=== PATIENT | female | born 1990 | race Caucasian/White ===

== ENCOUNTER → 2016-09-16 | Outpatient (CLI) | payer BC ==
[~2016-09-16] MED LIST: SINCALIDE INJ 1.1 MCG in SODIUM CHLORIDE 0.9% 100ML 100 ML IV ONE
--- NOTE | 2016-09-16 13:56 | DIAGNOSTIC IMAGING REPORT ---
NUCLEAR MEDICINE HEPATIC BILIARY SCAN WITH EJECTION FRACTION ANALYSIS CLINICAL HISTORY: Right upper quadrant abdominal pain COMPARISON STUDY: No previous studies for comparison. FINDINGS: The patient was injected with 5.4 mCi technetium 99m Choletec. Sequential anterior imaging was performed. The gallbladder was first visualized on the 25 minute image. There was normal passage of activity into small bowel. At 1 hour, the patient was administered 1.1 mcg of sincalide utilizing a 30 minute intravenous infusion. The gallbladder ejection fraction was normal measuring 76%. IMPRESSION: Normal study. No evidence of cystic duct obstruction. Normal gallbladder ejection fraction of 76%. Electronically signed by: Vinnie Dobbs M.D. 09/16/2016 1:55 PM Dictated Date/Time: 09/16/2016 1:53 PM
== END | disposition home or self-care (01) ==
LOC: C.NUCL 10:03
PROVIDERS: ATTEND Internal Medicine
DX: R10.11 Right upper quadrant pain (principal)

== ENCOUNTER → 2017-01-14 | Outpatient (CLI) | payer BC ==
--- NOTE | 2017-01-14 10:36 | DIAGNOSTIC IMAGING REPORT ---
LEFT THUMB 3 VIEWS HISTORY: Left thumb injury with pain. 1ST DIGIT ON LEFT HAND COMPARISON: None. FINDINGS: There is no acute fracture or dislocation. Soft tissues are unremarkable. No radiopaque foreign bodies. IMPRESSION: No acute fracture or dislocation within the left thumb. Electronically signed by: Louie Hamilton M.D. 01/14/2017 10:35 AM Dictated Date/Time: 01/14/2017 10:34 AM
== END | disposition home or self-care (01) ==
LOC: C.RAD1850 10:16
PROVIDERS: ATTEND Student in an Organized Health Care Education/Training Program
DX: M79.645 Pain in left finger(s) (principal)

== ENCOUNTER 2017-05-31 14:50 | Observation (INO) | payer BC ==
[~2017-05-31] VITALS: Ht 162.6 cm; Wt 55.1 kg
--- NOTE | 2017-05-31 15:27 | EMERGENCY ROOM VISIT NOTE ---
History First contact with patient: 14:58 Chief Complaint: CHEST PAIN Stated Complaint: CHEST PAIN History of Present Illness The patient is a 26 year old female who presents to the Emergency Room with complaints of "chest pain". The patient states that she developed chest pain throughout the day yesterday, into last night. She states that when she woke up she was diaphoretic, her heart was racing in the left anterior chest pain worsened. She then states that she went to the gym which did not exacerbate the chest pain, however since then she notes pain worsening in the left anterior chest. It one point was worse with movement of the left arm. She had shortness of breath at times. She had this before and it was a pulled muscle. She denies any smoking, significant past medical history. She does note that her father has heart disease, and she does take control. There has been no recent long travel or fractures or surgeries. Review of Systems A complete 10-point Review of Systems was discussed with the patient, with pertinent positives and negatives listed in the History of Present Illness. All remaining Review of Systems questions can be considered negative unless otherwise specified. Past Medical/Surgical History No pertinent Family History Father with heart disease Social History Smoking Status: Never Smoker Pt. lives locally Current/Historical Medications Scheduled Biotin (Biotin), 1,000 MCG PO DAILY Control Pills ( Control Pills), 1 TAB PO DAILY Cholecalciferol (Vitamin D3), 1,000 UNITS PO DAILY Mesalamine (Lialda), 4 TAB PO QAM W/FOOD Riboflavin (Vitamin B-2), 100 MG PO DAILY Physical Exam Vital Signs Date Time Temp Pulse Resp B/P (MAP) Pulse Ox O2 Delivery O2 Flow Rate FiO2 05/31/17 17:46 91 18 98 05/31/17 17:30 130/88 05/31/17 17:16 87 16 97 05/31/17 17:00 123/88 05/31/17 16:46 94 15 86 05/31/17 16:30 134/86 05/31/17 16:16 91 16 126/85 99 Room Air 05/31/17 16:16 94 15 05/31/17 15:20 99 Room Air 05/31/17 15:17 100 05/31/17 15:15 99 Room Air 05/31/17 14:53 37.0 106 20 150/98 98 Room Air Physical Exam VITAL SIGNS - Vital signs and nursing notes were reviewed. Stable. Afebrile. Tachycardic at 106. GENERAL - 26-year-old female appearing her stated age who is in no acute distress. She appears anxious Communicates well with provider and answers questions appropriately. SKIN - Without rashes. HEAD - NC/AT. EYES - Sclera anicteric. EARS - No deformities of external structures noted on gross examination bilaterally. No pain elicited with palpation of the tragus bilaterally. External auditory canals without discharge or otorrhea. Tympanic membranes pearly drake without retraction or bulging. No fluid or purulent material visualized behind the TM. Handle of malleus, umbo, cone of light, pars tensa/ flaccid all easily visualized. NOSE - Midline and without cyanosis. No epistaxis or purulent drainage noted. Septum midline without deviation or septal hematoma noted. MOUTH/OROPHARYNX - Without perioral cyanosis. LUNGS - Chest wall symmetric without accessory muscle use, intercostals retractions, or central cyanosis. Normal vesicular breath sounds CTA B/L. No wheezes, rales, or rhonchi appreciated. CARDIAC - RRR with S1/S2. No murmur, rubs, or gallops appreciated. EXTREMITIES - No clubbing or peripheral cyanosis. No pretibial edema present. +5 /5 strength noted in UE/LE bilaterally. NEUROLOGIC - Cranial nerves II through XII grossly intact. Sensory intact to light touch throughout. PSYCH - A&O, and cooperates fully with examiner. Pt is very pleasant and interacts well with examiner. Medical Decision & Procedures ER Provider Diagnostic Interpretation: SINGLE VIEW CHEST CLINICAL HISTORY: Atypical chest pain. FINDINGS: An AP, portable, upright chest radiograph is obtained. No prior studies are available for comparison at the time of dictation. The examination is mildly degraded by portable technique and patient rotation. The cardiomediastinal silhouette is unremarkable. The lungs and pleural spaces are clear. No pneumothorax is seen. The bony thorax is grossly intact. IMPRESSION: No active disease in the chest. Electronically signed by: Jose Rodriguez M.D. 05/31/2017 4:08 PM Dictated Date/Time: 05/31/2017 4:07 PM Laboratory Results 05/31/17 15:15 Red Blood Count 4.45, Mean Corpuscular Volume 94.2, Mean Corpuscular Hemoglobin 33.0, Mean Corpuscular Hemoglobin Concent 35.1, Mean Platelet Volume 10.5, Neutrophils (%) (Auto) 58.7, Lymphocytes (%) (Auto) 32.6, Monocytes (%) (Auto) 6.0, Eosinophils (%) (Auto) 2.1, Basophils (%) (Auto) 0.2, Neutrophils # (Auto) 6.71, Lymphocytes # (Auto) 3.73, Monocytes # (Auto) 0.69, Eosinophils # (Auto) 0.24, Basophils # (Auto) 0.02 05/31/17 15:15 Test 05/31/17 15:15 05/31/17 17:08 White Blood Count 11.44 K/uL (4.8-10.8) Red Blood Count 4.45 M/uL (4.2-5.4) Hemoglobin 14.7 g/dL (12.0-16.0) Hematocrit 41.9 % (37-47) Mean Corpuscular Volume 94.2 fL (80-100) Mean Corpuscular Hemoglobin 33.0 pg (25-34) Mean Corpuscular Hemoglobin Concent 35.1 g/dl (32-36) Platelet Count 231 K/uL (130-400) Mean Platelet Volume 10.5 fL (7.4-10.4) Neutrophils (%) (Auto) 58.7 % Lymphocytes (%) (Auto) 32.6 % Monocytes (%) (Auto) 6.0 % Eosinophils (%) (Auto) 2.1 % Basophils (%) (Auto) 0.2 % Neutrophils # (Auto) 6.71 K/uL (1.4-6.5) Lymphocytes # (Auto) 3.73 K/uL (1.2-3.4) Monocytes # (Auto) 0.69 K/uL (0.11-0.59) Eosinophils # (Auto) 0.24 K/uL (0-0.5) Basophils # (Auto) 0.02 K/uL (0-0.2) RDW Standard Deviation 45.3 fL (36.4-46.3) RDW Coefficient of Variation 13.2 % (11.5-14.5) Immature Granulocyte % (Auto) 0.4 % Immature Granulocyte # (Auto) 0.05 K/uL (0.00-0.02) Prothrombin Time 10.3 SECONDS (9.0-12.0) Prothromb Time International Ratio 1.0 (0.9-1.1) Activated Partial Thromboplast Time 25.5 SECONDS (21.0-31.0) Partial Thromboplastin Ratio 1.0 D-Dimer 210 ug/L FEU (0-500) Anion Gap 8.0 mmol/L (3-11) Est Creatinine Clear Calc Drug Dose 106.4 ml/min Estimated GFR () 138.0 Estimated GFR (Non- 119.0 BUN/Creatinine Ratio 18.1 (10-20) Calcium Level 10.2 mg/dl (8.5-10.1) Magnesium Level 2.2 mg/dl (1.8-2.4) Total Bilirubin 0.3 mg/dl (0.2-1) Aspartate Amino Transf (AST/SGOT) 19 U/L (15-37) Alanine Aminotransferase (ALT/SGPT) 23 U/L (12-78) Alkaline Phosphatase 57 U/L (45-117) Total Creatine Kinase 151 U/L (26-192) Creatine Kinase MB 1.1 ng/ml (0.5-3.6) Creatine Kinase MB Ratio 0.7 (0-3.0) C-Reactive Protein 0.52 mg/dl (0-0.29) Total Protein 7.8 gm/dl (6.4-8.2) Albumin 4.3 gm/dl (3.4-5.0) Globulin 3.5 gm/dl (2.5-4.0) Albumin/Globulin Ratio 1.2 (0.9-2) Thyroid Stimulating Hormone (TSH) 2.790 uIu/ml (0.300-4.500) Troponin I < 0.015 ng/ml (0-0.045) Medications Administered Medications (Trade) Dose Ordered Sig/Jean Route Start Time Stop Time Status Last Admin Dose Admin Acetaminophen (Tylenol Tab) 500 mg NOW STAT PO 05/31/17 16:34 05/31/17 16:35 DC 05/31/17 17:24 500 MG Famotidine (Pepcid Tab) 20 mg NOW STAT PO 05/31/17 16:42 05/31/17 16:44 DC 05/31/17 17:24 20 MG Lidocaine HCl (Viscous Lidocaine 2% Soln) 20 ml STK-MED ONCE .ROUTE 1/20/18 17:22 05/31/17 17:23 DC 05/31/17 17:25 20 ML Al Hydroxide/Mg Hydroxide (Maalox Susp) 30 ml STK-MED ONCE .ROUTE 05/31/17 17:23 05/31/17 17:24 DC 05/31/17 17:23 30 ML Medical Decision Patient was seen and evaluated as above. She presents to us today with chest pain. She is nontoxic on exam, but does appear to be anxious. No pertinent past medical history. IV access was initiated, and the above workup was performed. Bedside EKG does reveal normal sinus rhythm rate of 90 bpm, per my interpretation does have T-wave abnormalities in leads V1-V6. There is no previous for comparison. Troponin was negative. Chest x-ray negative. There is minimal leukocytosis at 11.44. No anemia noted. Coags normal. D-dimer 210. Patient metabolic panel reveals hypokalemia with potassium at 3.4. No evidence of kidney or liver failure. Repeat troponin was negative. C-reactive protein 0.52. TSH normal. A repeat EKG was performed and reveals normal sinus rhythm. The evident T-wave changes in V1 through V6 appear to have improved. This is concerning because the leads that were on the patient for the first EKG in these areas of abnormalities were not changed. Therefore this is unlikely lead placement. The patient did note pain throughout her time here and requested Tylenol. She was given 500 mg. I discussed the case with the attending physician, Dr. Cordon and the decision was made to consult cardiology given the patient's change in EKG. I then spoke with Dr. Cavazos and after discussing the patient case it was decided to have the patient brought in to the hospital under observation with potential echocardiogram in the morning. I ordered the echocardiogram. I then went to bedside and she was quite anxious and then she was given 0.5 mg of subungual Ativan. She appears stable for inpatient management. Please refer to further documentation regarding her stay. I also discussed the case with the hospitalist, as refer to further documentation regarding her stay. In the evaluation and treatment of this patient the following differential diagnoses were entertained: TX, PE, Brody conference, pericarditis, among others. Impression Primary Impression: Chest wall pain Additional Impressions: Hypokalemia EKG abnormalities Departure Information Dispostion Admitted as an inpatient Condition GOOD Referrals No Doctor, Assigned (PCP) Patient Instructions My [facility] Additional Instructions You have been treated in the Emergency Department your chest Pain. Laboratory results and imaging studies have ruled out any emergent causes for your chest pain which would warrant admission or surgery at this time. However, as we discussed I recommend follow up with your family doctor for potential ECHO or cardiology follow up given your EKG abnormalities (which may be normal variant) For pain control, you can use the following [id number] medicines: - Regular strength (325mg/tab) Tylenol (acetaminophen) 2 tabs every 4-6 hours as needed. Do not exceed 12 tablets in a 24 hour period. Avoid taking more than 3 grams (3000 mg) of Tylenol per day. This includes any other sources of acetaminophen you may take on a regular basis. - Regular strength (200 mg/tab) Advil (ibuprofen) 1-2 tabs every 4-6 hours as needed. Do not exceed a dose of 3200 mg per day. Drink plenty of water and stay well hydrated. As with any trip to the Emergency Department, you should follow-up with your Primary Care Provider from today's visit. Return to the emergency department if your symptoms persist despite treatment plan outlined above or if the following symptoms occur: increased fevers, chills , worsening nausea/vomiting, blood in your stool or urine. Problem Qualifiers
[2017-05-31] MEDS ORDERED: RIBO100T9 PO (15:31)
[2017-05-31] MEDS ORDERED: MESA1.2T PO (15:31)
[2017-05-31] MEDS ORDERED: BIOT1TAB5 PO (15:31)
[2017-05-31] MEDS ORDERED: BCPILLS PO (15:31)
[2017-05-31] MEDS ORDERED: CHOL1000 PO (15:31)
[2017-05-31 15:36] LABS: BASO % 0.2 %; BASO ABS # 0.02 K/uL (0-0.2); EOS % 2.1 %; EOS ABS # 0.24 K/uL (0-0.5); HEMATOCRIT 41.9 % (37-47); HEMOGLOBIN 14.7 g/dL (12.0-16.0); IG# 0.05 K/uL (0.00-0.02); LYMPH % 32.6 %; LYMPH ABS # 3.73 K/uL (1.2-3.4); MEAN CELL VOLUME 94.2 fL (80-100); MEAN CORPUSCULAR HGB CONC 35.1 g/dl (32-36); MEAN PLATELET VOLUME 10.5 fL (7.4-10.4); MONO ABS # 0.69 K/uL (0.11-0.59); NEUT % 58.7 %; NEUT ABS # 6.71 K/uL (1.4-6.5); PLATELET COUNT 231 K/uL (130-400); RED CELL DISTRIBUTION WIDTH CV 13.2 % (11.5-14.5); RED CELL DISTRIBUTION WIDTH SD 45.3 fL (36.4-46.3); WHITE BLOOD COUNT 11.44 K/uL (4.8-10.8)
[2017-05-31 15:45] LABS: PTT PATIENT 25.5 SECONDS (21.0-31.0)
[2017-05-31 15:56] LABS: ALBUMIN 4.3 gm/dl (3.4-5.0); ALT/SGPT 23 U/L (12-78); AST/SGOT 19 U/L (15-37); BLOOD UREA NITROGEN 12 mg/dl (7-18); CALCIUM 10.2 mg/dl (8.5-10.1); CARBON DIOXIDE 24 mmol/L (21-32); CREATININE 0.68 mg/dl (0.60-1.20); GLUCOSE 80 mg/dl (70-99); POTASSIUM 3.4 mmol/L (3.5-5.1); SODIUM 137 mmol/L (136-145)
[2017-05-31 16:04] LABS: ALKALINE PHOSPHATASE 57 U/L (45-117); CKMB 1.1 ng/ml (0.5-3.6); TOTAL PROTEIN 7.8 gm/dl (6.4-8.2)
--- NOTE | 2017-05-31 16:09 | DIAGNOSTIC IMAGING REPORT ---
SINGLE VIEW CHEST CLINICAL HISTORY: Atypical chest pain. FINDINGS: An AP, portable, upright chest radiograph is obtained. No prior studies are available for comparison at the time of dictation. The examination is mildly degraded by portable technique and patient rotation. The cardiomediastinal silhouette is unremarkable. The lungs and pleural spaces are clear. No pneumothorax is seen. The bony thorax is grossly intact. IMPRESSION: No active disease in the chest. Electronically signed by: Jose Rodriguez M.D. 05/31/2017 4:08 PM Dictated Date/Time: 05/31/2017 4:07 PM
[2017-05-31] MEDS ORDERED: ACETAMINOPHEN 500 MG TAB PO STA (16:34)
[2017-05-31] MEDS ORDERED: FAMOTIDINE 20 MG TAB PO STA (16:42)
[2017-05-31] MEDS ORDERED: GI COCKTAIL PO STA (16:42)
[2017-05-31] MEDS ORDERED: LIDOCAINE HCL 2% VISC SOLN 20 ML UDC ONE (17:22)
[2017-05-31] MEDS ORDERED: ALUMINUM/MAGNESIUM SUSP 30 ML UDC ONE (17:23)
[2017-05-31] MEDS ORDERED: ONDANSETRON INJ 2 MG/ML 2 ML VIAL IV PRN (19:00)
[2017-05-31] MEDS ORDERED: NSS + 20MEQ KCL 1000ML 1,000 ML IV ONE (19:00)
[2017-05-31] MEDS ORDERED: NITROGLYCERIN 0.4 MG SL PER TAB CHARGE SL PRN (19:00)
[2017-05-31] MEDS ORDERED: MoRPHine SULFATE 2 MG/ML CARP IV PRN (19:00)
[2017-05-31] MEDS ORDERED: POTASSIUM CHLORIDE 20 MEQ TABCR PO ONE (19:15)
[2017-05-31] MEDS ORDERED: ASPIRIN 81 MG ECTAB PO ONE (19:15)
[2017-05-31] MEDS ORDERED: LORAZEPAM 0.5 MG TAB PO STA (19:21)
[2017-05-31] MEDS ORDERED: LORAZEPAM 0.5 MG TAB ONE (19:23)
--- NOTE | 2017-05-31 19:34 | History and Physical ---
History & Physical Date & Time of Service: May 31, 2017 at 19:10 Chief Complaint: Chest Pain Primary Care Physician: No Doctor, Assigned History of Present Illness Source: patient Patient is a 26 yr female with PMH of Ulcerative Colitis, GERD and Migraine presents with history of chest pain since yesterday. Patient states she had flu like symptoms 2 weeks ago which relieved after taking over the counter medications. She noted to have sudden onset of chest pain which started at rest , left sided, non radiating, dull in nature, intermittent and lasted for about 15 minutes and resolved without any medications. Patient had recurrence of chest pain yesterday night and woke up from sleep when she noticed to be diaphoretic but denies any nausea, dizziness, SOB. Today patient went to the gym which did not exacerbate the chest pain but later symptoms reoccurred which an intensity of 8/10 which brought her to ED for further evaluation. Patient received Tylenol, GI cocktail along with Pepcid in ED which decreased the chest pain to 3/10 per patient. Denies any history of palpitations, orthopnea, PND, pedal edema, cough, fever, chills, nausea, vomiting, abdominal pain, diarrhea, dysuria, recent travel, recent change in medications. Family History Father: Congenital Heart Disease Grandfather: Heart disease Social History Smoking Status: Never Smoker Alcohol Use: socially Drug Use: none Allergies Coded Allergies: No Known Allergies (Unverified , 05/31/17) Home Medications Scheduled Biotin (Biotin), 1,000 MCG PO DAILY Control Pills ( Control Pills), 1 TAB PO DAILY Cholecalciferol (Vitamin D3), 1,000 UNITS PO DAILY Mesalamine (Lialda), 4 TAB PO QAM W/FOOD Riboflavin (Vitamin B-2), 100 MG PO DAILY Review of Systems See HPI for pertinent positives & negatives. A total of 10 systems reviewed and were otherwise negative. Physical Exam Vital Signs Date Time Temp Pulse Resp B/P (MAP) Pulse Ox O2 Delivery O2 Flow Rate FiO2 05/31/17 17:46 91 18 98 05/31/17 17:30 130/88 05/31/17 17:16 87 16 97 05/31/17 17:00 123/88 05/31/17 16:46 94 15 86 05/31/17 16:30 134/86 05/31/17 16:16 91 16 126/85 99 Room Air 05/31/17 16:16 94 15 05/31/17 15:20 99 Room Air 05/31/17 15:17 100 05/31/17 15:15 99 Room Air 05/31/17 14:53 37.0 106 20 150/98 98 Room Air General Appearance: WD/WN, no apparent distress Head: normocephalic, atraumatic Eyes: normal inspection, PERRL, EOMI, sclerae normal ENT: normal ENT inspection, hearing grossly normal Neck: supple, trachea midline Respiratory/Chest: chest non-tender, lungs clear, normal breath sounds, no respiratory distress, no accessory muscle use Cardiovascular: regular rate, rhythm, no edema, no murmur, + tachycardia Abdomen/GI: normal bowel sounds, non tender, soft Back: normal inspection Extremities/Musculoskelatal: normal inspection, no pedal edema Neurologic/Psych: adjunct instructor II-XII nml as tested, no motor/sensory deficits, alert, oriented x 3, + pertinent finding (anxious) Skin: normal color, warm/dry Diagnostics Laboratory Results Results Past 24 Hours Test 05/31/17 15:15 05/31/17 17:08 Range/Units White Blood Count 11.44 4.8-10.8 K/uL Red Blood Count 4.45 4.2-5.4 M/uL Hemoglobin 14.7 12.0-16.0 g/dL Hematocrit 41.9 37-47 % Mean Corpuscular Volume 94.2 80-100 fL Mean Corpuscular Hemoglobin 33.0 25-34 pg Mean Corpuscular Hemoglobin Concent 35.1 32-36 g/dl Platelet Count 231 130-400 K/uL Mean Platelet Volume 10.5 7.4-10.4 fL Neutrophils (%) (Auto) 58.7 % Lymphocytes (%) (Auto) 32.6 % Monocytes (%) (Auto) 6.0 % Eosinophils (%) (Auto) 2.1 % Basophils (%) (Auto) 0.2 % Neutrophils # (Auto) 6.71 1.4-6.5 K/uL Lymphocytes # (Auto) 3.73 1.2-3.4 K/uL Monocytes # (Auto) 0.69 0.11-0.59 K/uL Eosinophils # (Auto) 0.24 0-0.5 K/uL Basophils # (Auto) 0.02 0-0.2 K/uL RDW Standard Deviation 45.3 36.4-46.3 fL RDW Coefficient of Variation 13.2 11.5-14.5 % Immature Granulocyte % (Auto) 0.4 % Immature Granulocyte # (Auto) 0.05 0.00-0.02 K/uL Prothrombin Time 10.3 9.0-12.0 SECONDS Prothromb Time International Ratio 1.0 0.9-1.1 Activated Partial Thromboplast Time 25.5 21.0-31.0 SECONDS Partial Thromboplastin Ratio 1.0 D-Dimer 210 0-500 ug/L FEU Sodium Level 137 136-145 mmol/L Potassium Level 3.4 3.5-5.1 mmol/L Chloride Level 105 98-107 mmol/L Carbon Dioxide Level 24 21-32 mmol/L Anion Gap 8.0 3-11 mmol/L Blood Urea Nitrogen 12 7-18 mg/dl Creatinine 0.68 0.60-1.20 mg/dl Est Creatinine Clear Calc Drug Dose 106.4 ml/min Estimated GFR () 138.0 Estimated GFR (Non- 119.0 BUN/Creatinine Ratio 18.1 10-20 Random Glucose 80 70-99 mg/dl Calcium Level 10.2 8.5-10.1 mg/dl Magnesium Level 2.2 1.8-2.4 mg/dl Total Bilirubin 0.3 0.2-1 mg/dl Aspartate Amino Transf (AST/SGOT) 19 15-37 U/L Alanine Aminotransferase (ALT/SGPT) 23 12-78 U/L Alkaline Phosphatase 57 45-117 U/L Total Creatine Kinase 151 26-192 U/L Creatine Kinase MB 1.1 0.5-3.6 ng/ml Creatine Kinase MB Ratio 0.7 0-3.0 Troponin I < 0.015 < 0.015 0-0.045 ng/ml C-Reactive Protein 0.52 0-0.29 mg/dl Total Protein 7.8 6.4-8.2 gm/dl Albumin 4.3 3.4-5.0 gm/dl Globulin 3.5 2.5-4.0 gm/dl Albumin/Globulin Ratio 1.2 0.9-2 Thyroid Stimulating Hormone (TSH) 2.790 0.300-4.500 uIu/ml Diagnostic Radiology CXR: No active disease in the chest EKG EKG: T wave inversion in anterolateral leads Impression Assessment and Plan Chest Pain: R/O ACS H/O flu like symptoms 2 weeks ago Initial troponin:Negative EKG shows:T wave inversion in anterolateral leads Repeat EKG: normalization of T wave changes CXR: Unremarkable TSH:normal D-dimer:negative check ECHO Trend serial cardiac enzymes, repeat EKG, fasting lipid panel in AM Start Aspirin Oxygen, Pain control PRN NPO after midnight Cardiology consult Hypokalemia: Replace and monitor Mild Leukocytosis: No obvious source of infection monitor GERD: Continue Pepcid Ulcerative Colitis: Continue Mesalamine Follows with Migraine: Continue Riboflavin DVT Px: SCDs Code Status: Full Code Disposition: Monitor in tele VTE Prophylaxis VTE Risk Assessment Done? Y/N: Yes Risk Level: Low
[2017-05-31 19:56] VITALS: Ht 162.6 cm; Wt 55.1 kg
[2017-05-31 20:40] VITALS: BP 142/82; PULSE 87; TEMP 37.3; O2SAT 99
[2017-05-31] MEDS ORDERED: IV FLUIDS COMPLETED PRN (21:00)
[2017-05-31] MEDS: [UNRECOGNIZED DRUG - OTHER] SCH ×2 (21:45→23:24)
[2017-05-31] MEDS: ACETAMINOPHEN 325 MG TAB PO PRN (23:24)
[2017-05-31 23:26] VITALS: BP 123/81; PULSE 90; TEMP 36.8; O2SAT 99
[2017-06-01 03:52] LABS: HEMATOCRIT 38.9 % (37-47); HEMOGLOBIN 13.3 g/dL (12.0-16.0); MEAN CELL VOLUME 95.1 fL (80-100); MEAN CORPUSCULAR HEMOGLOBIN 32.5 pg (25-34); MEAN CORPUSCULAR HGB CONC 34.2 g/dl (32-36); MEAN PLATELET VOLUME 10.1 fL (7.4-10.4); PLATELET COUNT 202 K/uL (130-400); RED CELL DISTRIBUTION WIDTH CV 13.4 % (11.5-14.5); RED CELL DISTRIBUTION WIDTH SD 46.6 fL (36.4-46.3); WHITE BLOOD COUNT 8.44 K/uL (4.8-10.8)
[2017-06-01 04:29] LABS: BLOOD UREA NITROGEN 10 mg/dl (7-18); CALCIUM 9.3 mg/dl (8.5-10.1); CARBON DIOXIDE 26 mmol/L (21-32); CHOLESTEROL 141 mg/dl (0-200); CREATININE 0.57 mg/dl (0.60-1.20); GLUCOSE 88 mg/dl (70-99); LDL CHOLESTEROL CALCULATED 50 mg/dl; POTASSIUM 4.2 mmol/L (3.5-5.1); SODIUM 140 mmol/L (136-145)
[2017-06-01 05:02] VITALS: BP 119/80; PULSE 88; TEMP 36.8; O2SAT 98
[2017-06-01] MEDS ORDERED: LORAZEPAM 0.5 MG TAB PO ONE (05:30)
[2017-06-01] MEDS: ACETAMINOPHEN 325 MG TAB PO PRN (05:44)
[2017-06-01 08:00] VITALS: O2SAT 99
[2017-06-01] MEDS: [UNRECOGNIZED DRUG - OTHER] SCH (08:00)
[2017-06-01 08:10] VITALS: BP 121/81; PULSE 87; TEMP 36.6; O2SAT 97
[2017-06-01] MEDS ORDERED: FAMOTIDINE 20 MG TAB PO SCH (09:00)
[2017-06-01] MEDS ORDERED: NON-FORMULARY MEDICATION (Riboflavin (Vitamin B-2) 100 MG) PO SCH (09:00)
--- NOTE | 2017-06-01 09:45 | ECHOCARDIOGRAM REPORT ---
*NOTICE TO RECEIVING [employer] This information is strictly Confidential and protected under [place] law. [place] law prohibits you from making any further disclosure of this information unless further disclosure is expressly permitted by the written consent of the person to whom it pertains or is authorized by law. A general authorization for the release of medical or other information is not sufficient for this purpose. Hospital accepts no responsibility if the information is made available to any other person, INCLUDING THE PATIENT. Interpretation Summary * Name: PANCHO GRAVES Study Date: 06/01/2017 07:13 AM BP: 119/80 mmHg * Patient Location: [facility] HR: 88 * : 1990 (M/d/yyyy) Gender: Female Height: 64 in * Age: 26 yrs Ethnicity: [place] Weight: 125 lb * Ordering Physician: Jovany Motta * Referring Physician: Self, Referred * Performed By: Michaela Bess RDCS * * Reason For Study: Chest pain * BSA: 1.6 m2 * -- Conclusions -- * Normal LV chamber size and wall thickness. * Normal LV systolic function, EF 60-65%. * No segmental left ventricular wall motion abnormalities are noted. * Normal diastolic function. * No significant valvular pathology. Procedure Details * A complete two-dimensional transthoracic echocardiogram was performed (2D, M-mode, Doppler and color flow Doppler). Left Ventricle * The left ventricle is normal in size. * There is normal left ventricular wall thickness. * Ejection Fraction = 60-65%. * The left ventricular ejection fraction is normal. * No segmental left ventricular wall motion abnormalities are noted. * The left ventricular wall motion is normal. Right Ventricle * The right ventricular cavity size is normal (basal dimension <4.2 cm in right ventricular apical 4-chamber view). * The right ventricular systolic function is normal as assessed by tricuspid annular plane systolic excursion (TAPSE) (normal >1.5 cm). Atria * The left atrial size is normal. * Right atrial size is normal. * No ASD detected; PFO is not assessed. Mitral Valve * The mitral valve is normal in structure and function. Tricuspid Valve * The tricuspid valve is normal in structure and function. Aortic Valve * The aortic valve is not well visualized. * No hemodynamically significant valvular aortic stenosis. * There is no significant aortic regurgitation. Pulmonic Valve * The pulmonary valve is not well seen, but the Doppler examination is normal without significant regurgitation or stenosis. Great Vessels * The aortic root and proximal ascending aorta are normal sized. Pericardium/Pleural * There is no pericardial effusion. Left Ventricular Diastolic Function * Pulse wave TDI of the anterior and posterior mitral annulas demonstrates normal LV relaxation MMode 2D Measurements and Calculations IVSd 0.72 cm LVIDd 4.0 cm LVIDs 2.8 cm LVPWd 0.79 cm IVS/LVPW 0.92 FS 29.5 % EDV(Teich) 71.1 ml ESV(Teich) 30.6 ml EF(Teich) 57.0 % EDV(cubed) 65.3 ml ESV(cubed) 22.9 ml EF(cubed) 64.9 % LV mass(C)d 87.6 grams LV mass(C)dI 54.7 grams/m\S\2 SV(Teich) 40.5 ml SI(Teich) 25.3 ml/m\S\2 SV(cubed) 42.4 ml SI(cubed) 26.4 ml/m\S\2 Ao root diam 2.8 cm Ao root area 6.4 cm\S\2 ACS 2.3 cm LA dimension 3.3 cm asc Aorta Diam 2.5 cm LA/Ao 1.2 LVOT diam 2.0 cm LVOT area 3.0 cm\S\2 LVAd ap4 23.7 cm\S\2 LVLd ap4 7.5 cm EDV(MOD-sp4) 62.4 ml EDV(sp4-el) 63.5 ml LVAs ap4 13.3 cm\S\2 LVLs ap4 5.7 cm ESV(MOD-sp4) 27.1 ml ESV(sp4-el) 26.3 ml EF(MOD-sp4) 56.6 % EF(sp4-el) 58.6 % LVAd ap2 23.5 cm\S\2 LVLd ap2 6.5 cm EDV(MOD-sp2) 71.2 ml EDV(sp2-el) 71.6 ml LVAs ap2 14.0 cm\S\2 LVLs ap2 5.3 cm ESV(MOD-sp2) 31.8 ml ESV(sp2-el) 31.3 ml EF(MOD-sp2) 55.4 % EF(sp2-el) 56.3 % LVLd %diff -14.19 % EDV(MOD-bp) 71.8 ml LVLs %diff -6.89 % ESV(MOD-bp) 30.3 ml EF(MOD-bp) 57.8 % SV(MOD-sp4) 35.4 ml SI(MOD-sp4) 22.1 ml/m\S\2 SV(MOD-sp2) 39.4 ml SI(MOD-sp2) 24.6 ml/m\S\2 SV(MOD-bp) 41.5 ml SI(MOD-bp) 25.9 ml/m\S\2 SV(sp4-el) 37.2 ml SI(sp4-el) 23.2 ml/m\S\2 SV(sp2-el) 40.3 ml SI(sp2-el) 25.2 ml/m\S\2 Doppler Measurements and Calculations MV E max yvette 80.5 cm/sec MV A max yvette 67.9 cm/sec MV E/A 1.2 MV dec time 0.21 sec Ao V2 max 131.2 cm/sec Ao max PG 6.9 mmHg Ao max PG (full) 2.0 mmHg GAGAN(V,A) 2.5 cm\S\2 GAGAN(V,D) 2.5 cm\S\2 LV V1 max PG 4.8 mmHg LV V1 max 110.1 cm/sec PA V2 max 109.9 cm/sec PA max PG 4.8 mmHg PA acc slope 648.9 cm/sec\S\2 PA acc time 0.13 sec TR max yvette 156.9 cm/sec PA pr(Accel) 18.8 mmHg
[2017-06-01 11:53] VITALS: BP 125/81; PULSE 80; TEMP 36.9; O2SAT 94
--- NOTE | 2017-06-01 12:45 | Progress Note ---
Internal Med Progress Note Date of Service: Jun 01, 2017. Provider Documentation: SUBJECTIVE: Seen and examined at bedside Chest pain much improved Denies SOB, dizziness, nausea No other complaints Family at bedside OBJECTIVE: Vital Signs-as noted below Physical Exam: General Appearance:Moderately built and nourished, no apparent distress Head: normocephalic, Atraumatic Eyes: normal inspection, EOMI, PERRL Neck: supple, Trachea midline Respiratory/Chest: Normal breath sounds, CTA Cardiovascular: S1, S2, No murmur Abdomen/GI:Soft, Non tender, Bowel sounds present Extremities/Musculoskelatal:normal inspection, no edema Neurologic/Psych:AAOX3, grossly no focal neurological deficits Skin: normal color, warm Lab data as noted below. ASSESSMENT & PLAN: Chest Pain:Likely musculoskeletal in origin H/O flu like symptoms 2 weeks ago Troponin:Negative EKG shows:T wave inversion in anterolateral leads (? Lead reversal) Repeat EKG: normalization of T wave changes CXR: Unremarkable TSH:normal D-dimer:negative ECHO: no wall motion abnormality fasting lipid panel normal Pain control PRN Appreciate Cardiology Input Needs stress test as outpatient Hypokalemia: Resolved monitor Mild Leukocytosis: No obvious source of infection Resolved monitor GERD: Continue Pepcid Ulcerative Colitis: Continue Mesalamine Follows with Migraine: Continue Riboflavin DVT Px: SCDs Code Status: Full Code Disposition: Plan to discharge home today Follow up with your PCP on 06/03/17 at 1:45pm Get stress test as outpatient as recommended Follow up with your Plaster Caster in 2 weeks Seek immediate medical attention if your symptoms reoccur or worsen PROCEDURES: ECHO: Normal LV chamber size and wall thickness. * Normal LV systolic function, EF 60-65%. * No segmental left ventricular wall motion abnormalities are noted. * Normal diastolic function. * No significant valvular pathology. Vital Signs: Date Time Temp Pulse Resp B/P (MAP) Pulse Ox O2 Delivery O2 Flow Rate FiO2 06/01/17 11:53 36.9 80 20 125/81 (96) 94 Room Air 06/01/17 11:08 36.6 87 20 97 Room Air 06/01/17 08:10 36.6 87 20 121/81 (94) 97 Room Air 06/01/17 08:00 99 Room Air 06/01/17 05:02 36.8 88 16 119/80 (93) 98 Room Air 06/01/17 04:00 Room Air 06/01/17 00:00 Room Air 05/31/17 23:26 36.8 90 18 123/81 (95) 99 Room Air 05/31/17 20:40 37.3 87 18 142/82 (102) 99 Room Air 05/31/17 19:56 Room Air 05/31/17 19:26 99 16 141/94 94 Room Air 05/31/17 17:46 91 18 98 05/31/17 17:30 130/88 05/31/17 17:16 87 16 97 05/31/17 17:00 123/88 05/31/17 16:46 94 15 86 05/31/17 16:30 134/86 05/31/17 16:16 91 16 126/85 99 Room Air 05/31/17 16:16 94 15 05/31/17 15:20 99 Room Air 05/31/17 15:17 100 05/31/17 15:15 99 Room Air 05/31/17 14:53 37.0 106 20 150/98 98 Room Air Lab Results: Results Past 24 Hours Test 05/31/17 15:15 05/31/17 17:08 05/31/17 21:21 06/01/17 03:42 Range/Units White Blood Count 11.44 8.44 4.8-10.8 K/uL Red Blood Count 4.45 4.09 4.2-5.4 M/uL Hemoglobin 14.7 13.3 12.0-16.0 g/dL Hematocrit 41.9 38.9 37-47 % Mean Corpuscular Volume 94.2 95.1 80-100 fL Mean Corpuscular Hemoglobin 33.0 32.5 25-34 pg Mean Corpuscular Hemoglobin Concent 35.1 34.2 32-36 g/dl Platelet Count 231 202 130-400 K/uL Mean Platelet Volume 10.5 10.1 7.4-10.4 fL Neutrophils (%) (Auto) 58.7 % Lymphocytes (%) (Auto) 32.6 % Monocytes (%) (Auto) 6.0 % Eosinophils (%) (Auto) 2.1 % Basophils (%) (Auto) 0.2 % Neutrophils # (Auto) 6.71 1.4-6.5 K/uL Lymphocytes # (Auto) 3.73 1.2-3.4 K/uL Monocytes # (Auto) 0.69 0.11-0.59 K/uL Eosinophils # (Auto) 0.24 0-0.5 K/uL Basophils # (Auto) 0.02 0-0.2 K/uL RDW Standard Deviation 45.3 46.6 36.4-46.3 fL RDW Coefficient of Variation 13.2 13.4 11.5-14.5 % Immature Granulocyte % (Auto) 0.4 % Immature Granulocyte # (Auto) 0.05 0.00-0.02 K/uL Prothrombin Time 10.3 9.0-12.0 SECONDS Prothromb Time International Ratio 1.0 0.9-1.1 Activated Partial Thromboplast Time 25.5 21.0-31.0 SECONDS Partial Thromboplastin Ratio 1.0 D-Dimer 210 0-500 ug/L FEU Sodium Level 137 140 136-145 mmol/L Potassium Level 3.4 4.2 3.5-5.1 mmol/L Chloride Level 105 110 98-107 mmol/L Carbon Dioxide Level 24 26 21-32 mmol/L Anion Gap 8.0 4.0 3-11 mmol/L Blood Urea Nitrogen 12 10 7-18 mg/dl Creatinine 0.68 0.57 0.60-1.20 mg/dl Est Creatinine Clear Calc Drug Dose 106.4 127.0 ml/min Estimated GFR () 138.0 146.2 Estimated GFR (Non- 119.0 126.2 BUN/Creatinine Ratio 18.1 17.1 10-20 Random Glucose 80 88 70-99 mg/dl Calcium Level 10.2 9.3 8.5-10.1 mg/dl Magnesium Level 2.2 2.2 1.8-2.4 mg/dl Total Bilirubin 0.3 0.2-1 mg/dl Aspartate Amino Transf (AST/SGOT) 19 15-37 U/L Alanine Aminotransferase (ALT/SGPT) 23 12-78 U/L Alkaline Phosphatase 57 45-117 U/L Total Creatine Kinase 151 26-192 U/L Creatine Kinase MB 1.1 0.5-3.6 ng/ml Creatine Kinase MB Ratio 0.7 0-3.0 Troponin I < 0.015 < 0.015 < 0.015 < 0.015 0-0.045 ng/ml C-Reactive Protein 0.52 0-0.29 mg/dl Total Protein 7.8 6.4-8.2 gm/dl Albumin 4.3 3.4-5.0 gm/dl Globulin 3.5 2.5-4.0 gm/dl Albumin/Globulin Ratio 1.2 0.9-2 Thyroid Stimulating Hormone (TSH) 2.790 0.300-4.500 uIu/ml Triglycerides Level 82 0-150 mg/dl Cholesterol Level 141 0-200 mg/dl HDL Cholesterol 75 mg/dl LDL Cholesterol, Calculated 50 mg/dl VLDL Cholesterol, Calculated 16 mg/dl Cholesterol/HDL Ratio 1.9
--- NOTE | 2017-06-01 13:03 | Discharge Summary ---
Discharge Summary Date of Service Jun 01, 2017. Discharge Summary Admission Date: May 31, 2017 at 18:57 Discharge Date: Jun 01, 2017 Discharge Disposition: Home Principal Diagnosis: Chest Pain Procedures: CXR: No active disease in the chest. ECHO: Normal LV chamber size and wall thickness. * Normal LV systolic function, EF 60-65%. * No segmental left ventricular wall motion abnormalities are noted. * Normal diastolic function. * No significant valvular pathology. Consultations: Cardiology Pending Studies/Follow-Up: Follow up with your PCP on 06/03/17 at 1:45pm Get stress test as outpatient as recommended Follow up with your Drafting Supervisor in 2 weeks Seek immediate medical attention if your symptoms reoccur or worsen Medication Reconciliation Continued Medications: Biotin (Biotin) 1,000 Mcg Tab 1000 MCG PO DAILY Control Pills ( Control Pills) Tab 1 TAB PO DAILY, TAB Cholecalciferol (Vitamin D3) 1,000 Unit Tab 1000 UNITS PO DAILY for 90 Days, TAB 3 Refills Mesalamine (Lialda) 1.2 Gm Tab 4 TAB PO QAM W/FOOD for 30 Days, TAB 3 Refills Riboflavin (Vitamin B-2) 100 Mg Tab 100 MG PO DAILY Admission Information HPI (per Admitting provider): Patient is a 26 yr female with PMH of Ulcerative Colitis, GERD and Migraine presents with history of chest pain since yesterday. Patient states she had flu like symptoms 2 weeks ago which relieved after taking over the counter medications. She noted to have sudden onset of chest pain which started at rest , left sided, non radiating, dull in nature, intermittent and lasted for about 15 minutes and resolved without any medications. Patient had recurrence of chest pain yesterday night and woke up from sleep when she noticed to be diaphoretic but denies any nausea, dizziness, SOB. Today patient went to the gym which did not exacerbate the chest pain but later symptoms reoccurred which an intensity of 8/10 which brought her to ED for further evaluation. Patient received Tylenol, GI cocktail along with Pepcid in ED which decreased the chest pain to 3/10 per patient. Denies any history of palpitations, orthopnea, PND, pedal edema, cough, fever, chills, nausea, vomiting, abdominal pain, diarrhea, dysuria, recent travel, recent change in medications. 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 Lead reversal) Repeat EKG: normalization of T wave changes CXR: Unremarkable TSH:normal D-dimer:negative ECHO: no wall motion abnormality fasting lipid panel normal Pain control PRN Appreciate Cardiology Input: Advised stress test as outpatient Hypokalemia: Resolved monitor Mild Leukocytosis: No obvious source of infection Resolved monitor GERD: Continue Pepcid Ulcerative Colitis: Continue Mesalamine Follows with Migraine: Continue Riboflavin DVT Px: SCDs Code Status: Full Code Disposition: Plan to discharge home today Follow up with your PCP on 06/03/17 at 1:45pm Get stress test as outpatient as recommended Follow up with your Drafting Supervisor in 2 weeks Seek immediate medical attention if your symptoms reoccur or worsen PROCEDURES: ECHO: Normal LV chamber size and wall thickness. * Normal LV systolic function, EF 60-65%. * No segmental left ventricular wall motion abnormalities are noted. * Normal diastolic function. * No significant valvular pathology. Total time spent on discharge = This includes examination of the patient, discharge planning, medication reconciliation, and communication with other providers. Discharge Instructions Discharge Instructions Date of Service Jun 01, 2017. Admission Reason for Admission: Chest Wall Pain Discharge Discharge Diagnosis / Problem: Chest pain Discharge Goals Goal(s): Decrease discomfort, Improve function Activity Recommendations Activity Limitations: per Instructions/Follow-up section Lifting Limitations: gradually increase as tolerated Exercise/Sports Limitations: gradually increase as tolerated . Instructions / Follow-Up Instructions / Follow-Up Follow up with your PCP on 06/03/17 at 1:45pm Get stress test as outpatient as recommended Follow up with your Drafting Supervisor in 2 weeks Seek immediate medical attention if your symptoms reoccur or worsen Current Hospital Diet Patient's current hospital diet: AHA Diet (Heart Healthy) Discharge Diet Recommended Diet: AHA Diet (Heart Healthy) Pending Studies Studies pending at discharge: no Laboratory Results Lipid Panel Test 06/01/17 03:42 Range/Units Triglycerides Level 82 0-150 mg/dl Cholesterol Level 141 0-200 mg/dl HDL Cholesterol 75 mg/dl Cholesterol/HDL Ratio 1.9 LDL Cholesterol, Calculated 50 mg/dl Medical Emergencies . Who to Call and When: Medical Emergencies: If at any time you feel your situation is an emergency, please call 911 immediately. . Non-Emergent Contact Non-Emergency issues call your: Primary Care Provider, Drafting Supervisor Call Non-Emergent contact if: you have a fever, your pain is not controlled, your pain is worsening, your pain is unusual for you, your pain is concerning you, you have any medication questions Seek immediate medical attention if your symptoms reoccur or worsen . . "Provider Documentation" section prepared by Mode Wahl. . VTE Core Measure Inpt VTE Proph given/why not?: SCD's
--- NOTE | 2017-06-01 22:36 | CARDIOLOGY CONSULTATION ---
DATE OF CONSULTATION: 06/01/2017 CONSULTATION REQUESTED BY: PUJA oBrja REASON FOR CONSULTATION: Chest pain with abnormal EKG. HISTORY OF PRESENT ILLNESS: Mrs. Dubon is a very pleasant 26-year-old woman who presented to [facility] on 05/31/2017 per the advice of her family physician with a report of chest pain. The patient states that the day prior to presentation, she started developing chest discomfort. She described it as a dull achy1 sensation underneath her left breast. It was nonradiating. It was intermittent and she did not really have any pattern to the discomfort. It did start when she was sitting at her desk at work. She does not believe, she was overly anxious at that time. The discomfort waxed and waned until she finally contacted her family physician who recommended she go to the Emergency Department. Initial EKG was performed which showed diffuse T-wave inversions in the precordial leads. She was given a GI cocktail along with Pepcid and Tylenol in the ER, which seemed to help her discomfort. The patient does note that her pain was reproduced in the ER when she outstretched her arms. Upon further questioning, patient also admits that she just started resistance exercise training the day the pain started and she did do pectoral exercises during her workouts. PAST SURGICAL HISTORY: Appendectomy. MEDICAL ILLNESSES: 1. Ulcerative colitis. 2. Migraines. FAMILY HISTORY: Remarkable for her father who had congenital heart disease with a hole in his heart, who suffered surgical complications and due to them. Otherwise, denies any premature coronary artery disease. SOCIAL HISTORY: Denies any tobacco use. Drinks occasional alcohol. Denies any recreational drug use. She is . She lives at home with her . She has no children. She is currently employed in [email or web address] for [employer]. Again, she just started an exercise routine. REVIEW OF SYSTEMS: As per HPI, all other review of systems reviewed and negative at this time. ALLERGIES: No known drug allergies. MEDICATIONS AN OUTPATIENT: 1. Oral contraceptives. 2. Vitamins. PHYSICAL EXAMINATION: VITALS: Temperature 36.6, pulse 87, respiratory rate 12, blood pressure 121/81. GENERAL: Awake, alert, oriented x3, in no acute distress. HEENT: Normocephalic, atraumatic. Pupils equal, round, and reactive to light and accommodation. Extraocular muscles intact. Anicteric sclerae. Moist mucous membranes. NECK: No JVD, no bruit. CARDIOVASCULAR: Regular. No S4. Normal S1 and S2. No S3. No murmurs, rubs or gallops. PULMONARY: Clear to auscultation bilaterally. No rales, rhonchi, or wheezing. ABDOMEN: Bowel sounds x4, soft. No rebound, guarding, tenderness. No organomegaly. EXTREMITIES: No clubbing, cyanosis or edema. +2 pedal pulses bilaterally. SKIN: Warm and dry. MUSCULOSKELETAL: Having patient extend her arms, was able to reproduce the dull chest discomfort. TEST RESULTS: A 12-lead EKG performed in the Emergency Department upon presentation, independently reviewed at this time shows normal sinus rhythm with sinus arrhythmia. T-wave abnormality in the anterior lateral leads. Repeat EKG later in the Emergency Department shows near complete resolution of the T-wave abnormalities. A 2D echocardiogram was read as normal LV chamber size and wall thickness, normal LV systolic function, EF 60% to 65% with no segmental left ventricle wall motion abnormalities were noted. Normal diastolic function. No significant valvular pathology. LABORATORY STUDIES OF SIGNIFICANCE: D-dimer was unremarkable. Urine test is not resulted yet. Troponin negative x4. IMPRESSION: 1. Musculoskeletal chest pain. 2. Abnormal EKG, likely secondary to lead placement. RECOMMENDATIONS: It was my pleasure to see Mrs. Dubon in consultation today. From a cardiac standpoint, patient was counseled that her chest pain appears to be musculoskeletal in nature, especially in light of the normal echocardiogram and laboratory studies. She was counseled that my only concern is the fact that I cannot explain her EKG changes. The patient does offer when I mentioned this that her EKG was performed differently in the ER both times and she states that the stickers appeared to be placed at different portions of her body. She was counseled that is a very good reason to have EKG changes given the sensitivity of the study, and I would recommend an outpatient exercise stress echocardiogram for completeness sake to rule out any further cardiac pathophysiology. Of note, patient's voiced his great displeasure in the fact that the cost of the hospitalization and I explained to him the concerns from a cardiac standpoint given the EKG changes, but again since they have normalized, her echocardiogram is unremarkable and appears these changes are due to lead placement that there does not appear to be any active cardiac concerns at this point but outpatient stress testing should be completed. for completeness sake. It is okay to discharge patient to home from a cardiac standpoint. No medications will be added today. MTDD
== END 2017-06-01 13:52 | disposition home or self-care (01) ==
LOC: C.EDB 14:51 → C.MED 18:57 → CANRESERV 19:38 → ENRESERV 19:38 → CANRESERV 19:41 → ENRESERV 19:45 → C.MED 20:30
PROVIDERS: ADMIT Internal Medicine; ATTEND Internal Medicine
DX: R07.9 Chest pain, unspecified (principal); K51.90 Ulcerative colitis, unspecified, without complications; Z82.49 Family history of ischemic heart disease and other diseases of the circulatory system; Z79.3 Long term (current) use of hormonal contraceptives

== ENCOUNTER 2018-11-03 05:08 | Inpatient (IN) ==
--- OUTSIDE RECORDS SUMMARY | 2018-11-03 05:12 | External Medical Summary | Continuity of Care Document ---
:1990 Author Name Raegan Sawyer Address Unavailable Unavailable , Care Team Providers Name Role Phone Francisca Ramos M.D. Unavailable [email or web address] [email or web address] Unavailable [email or web address] [email or web address], [email or web address] Unavailable Unavailable Unavailable Unavailable Unavailable Problems Gestational diabetes mellitus (648.80) (O24.419) Allergies and Adverse Reactions Allergy history not documented Medications Ketone Test In Vitro Strip; check ketones in urine preston. Silverio Ramos MayRandy Start: 28-Aug-2018 Quantity: 1 50 Strip Box Refills: 2 Procedures Procedures not documented Immunizations Immunizations not documented Plan of Treatment Planned Observations Planned Goals not documented Results No Known Results Results not documented Encounters Appointment; Laura Gunter R.D. 28-Aug-2018 14:00 Encounter Diagnosis: Problem not documented
[2018-11-03] MEDS ORDERED: OXYTOCIN 30 UNITS/500 ML BAG IV PRN ×2 (06:01→11:24)
[2018-11-03 06:17] LABS: Hemoglobin 15.2 g/dL (12.0-16.0); Mean Corpuscular Volume 96.6 fL (80-100); Mean Platelet Volume 11.6 fL (7.4-10.4); Platelet Count 143 K/uL (130-400); RDW Coefficient of Variation 13.2 % (11.5-14.5); RDW Standard Deviation 46.3 fL (36.4-46.3); Red Blood Count 4.45 M/uL (4.2-5.4); White Blood Count 8.22 K/uL (4.8-10.8)
[2018-11-03 06:24] LABS: Mean Corpuscular Hgb Conc 35.3 g/dL (32-36)
--- NOTE | 2018-11-03 07:23 | History & Physical Report ---
Date of Service November 03, 2018 Assessment & Plan (1) Amniotic fluid leakin yo at 38.6 wks SROM, GBS negative VSS Afebrile FHR reassuring Discussed induction/ augmentation of labor with Cytotec or pitocin to decreased risk of infection She likes expectant management/ ambulation for an hour and then decide All questions were answered History of Present Illness Chief Complaint: Leaking Primary Care Provider: Surya Ibarra DO Patient is a 27 yo at 38.6 wks who woke up at 348 am with leaking of amniotic fluid She multiple gushes and were clear She feels mild irregular ctxs No feve/r chills/ LAIRD/ Change in vision/ N&V +FM Her has been complicated by 1) GDMA1 2) Ulcerative colitis on mesalamine, no flares Allergies Allergy/AdvReac Type Severity Reaction Status Date / Time No Known Allergies Allergy Verified 11/03/18 05:27 Home Medications Home Medications Medication Instructions Recorded Confirmed Type mesalamine 3.6 g PO DAILY 03/06/18 11/03/18 History vit-iron fum-folic ac 1 tab PO DAILY 11/03/18 11/03/18 History [ Vitamin] Patient History Medical History Ulcerative colitis Surgical History Hx of appendectomy Family History Other Cancer Diabetes Heart disease Hypertension Social History Preferred Language: Welsh Communication Ability: Effective Battery Engineer Required: No Beliefs That Will Affect Care: None marital status: Current Living Situation: Spouse current occupational status: employed Other Information That Helps Us Care for You: No Feels Safe at Home: Yes Safety Concerns: Feels Safe At This Time Smoking Status: Never smoker Hx Alcohol Use: No Hx Substance Use: No Review of Systems All systems reviewed & are unremarkable except as noted in HPI & below Physical Exam Musculoskeletal: Abd: soft, NT, Gravid Genitourinary: Grossly ruptured, nitrazine+ Cervix 1/ 50%/ -2, vertex, per JOSUÉ Johnston Results & Data Vital Signs (Past 12 Hours) Vital Signs Temp Pulse Resp BP 11/03/18 07:10 75 121/81 11/03/18 07:09 36.5 C 18 11/03/18 05:25 36.9 C 86 16 118/84 Monitoring External Monitor Categ I Tocodynamometer Ctxs q 2-5 min
--- NOTE | 2018-11-03 11:24 | Obstetrical Progress Note ---
Date of Service November 03, 2018 Physical Exam Genitourinary: Manual OB Exam: + cervical dilation 2 cm and 3 cm, + cervical effacement 80%, + station -2 and + amniotic fluid clear OB Exam Monitor Tracing: + external FHT monitor used, + external uterine monitor used and + category I will start Oxytocin to augment labor I discusssed the plan with the patient and she is in agreement Results & Data Vital Signs (Past 12 Hours) Vital Signs Temp Pulse Resp BP 11/03/18 10:33 36.5 C 79 18 120/82 11/03/18 07:10 75 121/81 11/03/18 07:09 36.5 C 18 11/03/18 05:25 36.9 C 86 16 118/84
[2018-11-03] MEDS: LACTATED RINGER'S 1,000 ML IV PRN ×3 (11:38→16:02)
[2018-11-03] MEDS ORDERED: BUPIVACAINE 0.25% 30 ML VIAL ONE ×2 (13:08→14:39)
[2018-11-03] MEDS ORDERED: fentaNYL citrate 100 MCG/2 ML VIAL ONE (13:09)
[2018-11-03] MEDS ORDERED: ePHEDrine sulfate 50 MG/ML AMP ONE (13:09)
[2018-11-03] MEDS ORDERED: fentaNYL 2MCG/ML ROPIV 1.25MG/ML 100 ML BAG EPI ONE (13:10)
--- NOTE | 2018-11-03 13:44 | Anesthesiology Consultation ---
Date of Service November 03, 2018 Assessment & Plan (1) Encounter for pre-operative examination: (2) Term : Chart Review Chart Review: Acceptable Risk for Labor Epidural History Height/Weight Height: 5 ft 4 in Weight: 68.039 kg Allergies Allergy/AdvReac Type Severity Reaction Status Date / Time No Known Allergies Allergy Verified 11/03/18 05:27 Medications Home Medications Medication Instructions Recorded Confirmed Last Taken mesalamine 3.6 g PO DAILY 03/06/18 11/03/18 11/02/18 08:00 vit-iron fum-folic ac 1 tab PO DAILY 11/03/18 11/03/18 11/02/18 08:00 [ Vitamin] Active Medications Generic Name Dose Route Start Last Admin Trade Name Freq PRN Reason Stop Dose Admin Lactated Ringer's 1,000 mls @ 125 mls/hr 11/03/18 06:01 11/03/18 13:43 Lr IV 11/05/18 06:00 125 mls/hr .Q8H PRN Administration L&D Protocol Protocol Oxytocin 30 units in 500 mls @ 3 mls/hr 11/03/18 11:24 11/03/18 12:40 Pitocin IV 11/05/18 11:23 0.18 units/hr .Q24H PRN 3 mls/hr Labor Induction/Augmentation Titration Protocol 0.18 UNITS/HR Past Medical History Medical History Ulcerative colitis Past Family History Family History Other Cancer Diabetes Heart disease Hypertension Past Surgical History Surgical History Hx of appendectomy Social History Smoking Status: Never smoker Hx Alcohol Use: No Hx Substance Use: No substance use type: does not use Physical Exam Vital Signs Last Vital Signs Temp 36.5 C 11/03/18 10:33 Pulse 87 11/03/18 13:33 Resp 18 11/03/18 10:33 BP 122/86 11/03/18 13:23 Pulse Ox 100 11/03/18 13:33 Testing Laboratory Results 11/03/18 06:08
--- NOTE | 2018-11-03 14:30 | Obstetrical Progress Note ---
Date of Service November 03, 2018 Physical Exam Genitourinary: Manual OB Exam: + cervical dilation 4 cm and 5 cm, + cervical effacement 90%, + station -2 and + amniotic fluid clear OB Exam Monitor Tracing: + external FHT monitor used and + external uterine monitor used epidural in place Results & Data Vital Signs (Past 12 Hours) Vital Signs Temp Pulse Resp BP Pulse Ox 11/03/18 14:27 90 99 11/03/18 14:26 72 120/75 11/03/18 14:23 79 121/77 11/03/18 14:22 70 97 11/03/18 14:20 75 128/76 11/03/18 14:17 81 113/60 100 11/03/18 14:14 75 129/63 11/03/18 14:12 88 100 11/03/18 14:11 82 126/78 11/03/18 14:08 71 118/71 11/03/18 14:07 79 100 11/03/18 14:05 92 H 130/86 11/03/18 14:02 69 130/83 11/03/18 13:33 87 100 11/03/18 13:28 72 100 11/03/18 13:23 76 122/86 100 11/03/18 12:40 86 111/82 11/03/18 10:33 36.5 C 79 18 120/82 11/03/18 07:10 75 121/81 11/03/18 07:09 36.5 C 18 11/03/18 05:25 36.9 C 86 16 118/84
[2018-11-03] MEDS ORDERED: NALOXONE HCL 1 MG in SODIUM CHLORIDE 0.9% 1000ML 1,000 ML IV PRN (14:31)
[2018-11-03] MEDS ORDERED: NALOXONE HCL 0.4 MG/1 ML VIAL/CARP IV PRN (14:31)
[2018-11-03] MEDS ORDERED: ePHEDrine sulfate 50 MG/ML AMP IV PRN (14:31)
[2018-11-03] MEDS ORDERED: fentaNYL 2MCG/ML ROPIV 1.25MG/ML 100 ML BAG EPI PRN (14:31)
[2018-11-03] MEDS ORDERED: Nursing to Pharmacy Communication ONE (19:22)
--- NOTE | 2018-11-03 22:06 | Obstetrical Progress Note ---
Date of Service November 03, 2018 Physical Exam Genitourinary: Manual OB Exam: + cervical dilation 9 cm, + cervical effacement 100% and + station + 1 OB Exam Monitor Tracing: + external FHT monitor used and + external uterine monitor used anterior lip Results & Data Vital Signs (Past 12 Hours) Vital Signs Temp Pulse Resp BP Pulse Ox 11/03/18 22:02 102 H 100 11/03/18 22:01 109 H 145/75 H 11/03/18 21:57 87 99 11/03/18 21:52 101 H 99 11/03/18 21:47 97 H 134/83 100 11/03/18 21:42 100 H 100 11/03/18 21:37 87 100 11/03/18 21:33 88 16 127/80 11/03/18 21:32 89 100 11/03/18 21:27 109 H 100 11/03/18 21:22 114 H 100 11/03/18 21:17 103 H 100 11/03/18 21:16 118 H 127/82 11/03/18 21:12 97 H 100 11/03/18 21:07 96 H 100 11/03/18 21:02 102 H 100 11/03/18 21:01 91 H 123/80 11/03/18 20:57 110 H 100 11/03/18 20:52 103 H 100 11/03/18 20:47 99 H 100 11/03/18 20:46 75 18 130/78 11/03/18 20:42 102 H 100 11/03/18 20:37 93 H 100 11/03/18 20:32 92 H 123/83 100 11/03/18 20:28 37.4 C 16 11/03/18 20:27 102 H 100 11/03/18 20:24 83 85 L 11/03/18 20:22 104 H 100 11/03/18 20:17 94 H 100 11/03/18 20:15 79 131/81 11/03/18 20:12 117 H 126/77 100 11/03/18 20:10 102 H 93 11/03/18 20:09 98 H 16 128/81 11/03/18 20:07 88 100 11/03/18 20:03 95 H 88 L 11/03/18 20:02 115 H 126/82 99 06/25/19 19:57 94 H 98 11/03/18 19:56 95 H 130/91 11/03/18 19:55 96 H 90 11/03/18 19:53 97 H 16 119/89 11/03/18 19:52 91 H 100 11/03/18 19:50 86 18 128/88 11/03/18 19:48 81 18 131/85 11/03/18 19:47 81 100 11/03/18 19:42 83 100 11/03/18 19:41 89 114/75 11/03/18 19:37 86 100 11/03/18 19:32 89 100 11/03/18 19:27 87 131/84 100 11/03/18 19:22 104 H 100 11/03/18 19:17 91 H 100 11/03/18 19:16 97 H 91 11/03/18 19:12 88 100 11/03/18 19:11 88 136/87 11/03/18 19:10 37.4 C 95 H 16 90 11/03/18 19:07 97 H 100 11/03/18 19:02 100 H 100 11/03/18 18:57 82 100 11/03/18 18:56 75 127/80 11/03/18 18:52 82 100 11/03/18 18:47 81 100 11/03/18 18:42 96 H 100 11/03/18 18:41 76 125/77 11/03/18 18:37 79 100 11/03/18 18:32 75 100 11/03/18 18:27 79 100 11/03/18 18:26 73 127/71 11/03/18 18:22 80 100 11/03/18 18:17 81 100 11/03/18 18:15 36.9 C 18 11/03/18 18:12 79 100 11/03/18 18:11 92 H 122/72 11/03/18 18:07 83 100 11/03/18 18:02 74 100 11/03/18 17:57 77 100 11/03/18 17:56 75 121/82 11/03/18 17:52 88 100 11/03/18 17:47 85 100 11/03/18 17:42 76 118/78 100 11/03/18 17:37 68 100 11/03/18 17:32 82 100 11/03/18 17:27 73 100 06/25/19 17:26 71 119/77 11/03/18 17:22 76 100 11/03/18 17:17 72 100 11/03/18 17:12 79 100 11/03/18 17:07 73 100 11/03/18 17:02 73 100 11/03/18 16:57 68 128/77 100 11/03/18 16:52 82 100 11/03/18 16:47 73 100 11/03/18 16:42 90 116/81 100 11/03/18 16:37 73 100 11/03/18 16:32 66 100 11/03/18 16:27 76 126/75 100 11/03/18 16:22 66 100 11/03/18 16:17 68 100 11/03/18 16:12 79 114/71 100 11/03/18 16:07 71 100 11/03/18 16:05 36.9 C 18 11/03/18 16:02 77 100 11/03/18 15:57 81 100 11/03/18 15:56 71 116/78 11/03/18 15:52 78 100 11/03/18 15:47 66 100 11/03/18 15:42 70 100 11/03/18 15:41 68 113/79 11/03/18 15:37 62 100 11/03/18 15:32 73 100 11/03/18 15:27 62 100 11/03/18 15:26 69 123/80 11/03/18 15:22 75 100 11/03/18 15:17 89 100 11/03/18 15:12 64 100 11/03/18 15:11 67 124/82 11/03/18 15:07 68 100 11/03/18 15:02 83 100 11/03/18 14:57 74 100 11/03/18 14:56 67 107/72 11/03/18 14:52 71 100 11/03/18 14:47 74 100 11/03/18 14:42 68 99 11/03/18 14:38 71 109/68 11/03/18 14:37 75 100 11/03/18 14:35 65 112/64 11/03/18 14:32 65 118/75 100 11/03/18 14:29 72 122/77 11/03/18 14:27 90 99 11/03/18 14:26 72 120/75 11/03/18 14:23 79 121/77 11/03/18 14:22 70 97 11/03/18 14:20 75 128/76 11/03/18 14:17 81 113/60 100 11/03/18 14:14 75 129/63 11/03/18 14:12 88 100 11/03/18 14:11 82 126/78 11/03/18 14:08 71 118/71 11/03/18 14:07 79 100 11/03/18 14:05 92 H 130/86 11/03/18 14:02 69 130/83 11/03/18 13:33 87 100 11/03/18 13:28 72 100 11/03/18 13:23 76 122/86 100 11/03/18 12:40 86 111/82 11/03/18 10:33 36.5 C 79 18 120/82
[2018-11-04] MEDS: LACTATED RINGER'S 1,000 ML IV PRN (00:05)
[2018-11-04] MEDS ORDERED: HYDROCORTISONE ACETATE 25 MG SUPP PR PRN (01:12)
[2018-11-04] MEDS ORDERED: BENZOCAINE 20% AER SPR 82.5 GM CAN EXT PRN (01:12)
[2018-11-04] MEDS ORDERED: BISACODYL 10 MG SUPP PR PRN (01:12)
[2018-11-04] MEDS ORDERED: OXYTOCIN 30 UNITS/500 ML BAG IV PRN (01:12)
[2018-11-04] MEDS ORDERED: MEASLES, MUMPS & RUBELLA VIRUS VIAL SQ ONE (01:12)
[2018-11-04] MEDS ORDERED: SUPERCREAM 0.870% 15 GM JAR EXT PRN (01:12)
[2018-11-04] MEDS ORDERED: DIPHTHERIA/TETANUS/PERTUSSIS 0.5 ML SYR/VIAL IM ONE (01:12)
[2018-11-04] MEDS ORDERED: LACTATED RINGER'S 1,000 ML IV SCH (01:15)
--- NOTE | 2018-11-04 01:22 | Procedure Note ---
Vaginal Delivery Summary Date of Service November 04, 2018 Vaginal Delivery Summary Delivery Note live male DONNELL over intact perineum with Apgars 8/9 weight pending. Delayed cord clamping followed by cord blood and spontaneous delivery of intact perineum. True knot in cord noted. Perineal tear repaired with 3/0 Vicryl suture. EBL 200 ml. Final sponge, needle and instrument count are correct. Mom and baby stable.
[2018-11-04] MEDS: IBUPROFEN 600 MG TAB PO PRN ×5 (01:43→23:35)
[2018-11-04] MEDS ORDERED: CARBOPROST TROMETHAMINE 250 MCG/ML AMPUL ONE (03:25)
[2018-11-04] MEDS ORDERED: METHYLERGONOVINE MALEATE 0.2 MG/ML AMP ONE (03:25)
[2018-11-04] MEDS ORDERED: miSOPROStol 200 MCG TAB ONE (03:37)
[2018-11-04] MEDS ORDERED: TRANEXAMIC ACID 100 MG/ML 10 ML VIAL ONE (03:37)
[2018-11-04] MEDS ORDERED: METHYLERGONOVINE MALEATE 0.2 MG/ML AMP IM STA (03:43)
[2018-11-04] MEDS ORDERED: TRANEXAMIC ACID 1,000 MG in 0.9 % SODIUM CHLORIDE 100 ML IV STA (03:44)
[2018-11-04] MEDS ORDERED: CARBOPROST TROMETHAMINE 250 MCG/ML AMPUL IM STA (03:44)
[2018-11-04] MEDS ORDERED: miSOPROStol 200 MCG TAB PR ONE (03:44)
[2018-11-04] MEDS ORDERED: SODIUM CHLORIDE 0.9% 250 ML IV PRN (03:46)
[2018-11-04 04:13] LABS: Hematocrit (blood only) 34.5 % (37-47); Hemoglobin 11.8 g/dL (12.0-16.0)
--- NOTE | 2018-11-04 04:17 | Obstetrical Progress Note ---
Date of Service November 04, 2018 Subjective Called to see patient with post bleeding after delivery. Patient had at 0054 and about an hour later had large gush of blood. Large volume of urine emptied 1300 ml. followed by Methergine, Carboplast and Cytotec rectally. Physical Exam Physical Exam: Fundus firm and no active bleeding at this time. CBC pending and Type and Cross for 2 Units PRBC's ordered. Results & Data Vital Signs (Past 12 Hours) Vital Signs Temp Pulse Resp BP Pulse Ox 11/04/18 04:11 80 133/93 11/04/18 04:10 79 98 11/04/18 04:06 37.0 C 75 18 128/83 11/04/18 04:05 83 97 11/04/18 04:02 80 135/77 11/04/18 03:56 96 H 124/77 11/04/18 03:51 96 H 121/75 11/04/18 03:47 101 H 134/73 11/04/18 03:45 102 H 125/70 11/04/18 03:41 97 H 132/63 11/04/18 03:35 106 H 122/79 11/04/18 03:20 131 H 129/78 11/04/18 03:13 144 H 121/69 11/04/18 03:05 113 H 127/64 11/04/18 02:50 98 H 115/68 11/04/18 02:35 93 H 133/80 11/04/18 02:20 110 H 144/79 H 11/04/18 02:05 111 H 16 137/75 11/04/18 01:50 90 18 149/74 H 11/04/18 01:35 98 H 18 133/73 11/04/18 01:20 93 H 18 141/72 H 11/04/18 01:05 37.2 C 100 H 18 139/67 11/04/18 01:02 109 H 98 11/04/18 00:57 105 H 96 11/04/18 00:52 147 H 99 11/04/18 00:51 110 H 168/101 H 11/04/18 00:47 95 H 97 11/04/18 00:42 101 H 97 11/04/18 00:37 90 96 11/04/18 00:35 93 H 138/86 11/04/18 00:32 106 H 99 06/26/19 00:27 97 H 98 11/04/18 00:22 89 99 11/04/18 00:20 104 H 20 136/84 11/04/18 00:17 92 H 100 11/04/18 00:12 97 H 100 11/04/18 00:07 101 H 20 133/78 100 11/04/18 00:02 109 H 100 11/03/18 23:57 105 H 100 11/03/18 23:52 117 H 100 11/03/18 23:47 105 H 100 11/03/18 23:45 113 H 133/91 11/03/18 23:42 109 H 100 11/03/18 23:40 106 H 128/79 11/03/18 23:37 108 H 100 11/03/18 23:35 87 128/74 11/03/18 23:32 99 H 99 11/03/18 23:31 83 130/73 11/03/18 23:27 88 97 11/03/18 23:26 83 18 125/73 11/03/18 23:22 83 128/67 97 11/03/18 23:17 85 98 11/03/18 23:16 76 16 127/70 11/03/18 23:12 84 98 11/03/18 23:11 81 120/68 11/03/18 23:07 96 H 99 11/03/18 23:05 37.0 C 18 11/03/18 23:04 99 H 126/61 11/03/18 23:02 96 H 99 11/03/18 23:01 96 H 18 122/61 11/03/18 22:58 98 H 146/74 H 11/03/18 22:57 101 H 96 11/03/18 22:55 100 H 20 129/78 11/03/18 22:52 96 H 100 11/03/18 22:47 97 H 100 11/03/18 22:45 84 128/81 11/03/18 22:42 101 H 100 11/03/18 22:37 90 100 11/03/18 22:32 93 H 20 127/77 99 11/03/18 22:27 92 H 100 11/03/18 22:22 87 100 11/03/18 22:17 100 H 100 11/03/18 22:16 92 H 123/82 11/03/18 22:12 88 100 11/03/18 22:07 102 H 100 11/03/18 22:02 102 H 100 11/03/18 22:01 109 H 145/75 H 11/03/18 21:57 87 99 11/03/18 21:52 101 H 99 11/03/18 21:47 97 H 134/83 100 11/03/18 21:42 100 H 100 11/03/18 21:37 87 100 11/03/18 21:33 88 16 127/80 11/03/18 21:32 89 100 11/03/18 21:27 109 H 100 11/03/18 21:22 114 H 100 11/03/18 21:17 103 H 100 11/03/18 21:16 118 H 127/82 11/03/18 21:12 97 H 100 11/03/18 21:07 96 H 100 11/03/18 21:02 102 H 100 11/03/18 21:01 91 H 123/80 11/03/18 20:57 110 H 100 11/03/18 20:52 103 H 100 11/03/18 20:47 99 H 100 11/03/18 20:46 75 18 130/78 11/03/18 20:42 102 H 100 11/03/18 20:37 93 H 100 11/03/18 20:32 92 H 123/83 100 11/03/18 20:28 37.4 C 16 11/03/18 20:27 102 H 100 11/03/18 20:24 83 85 L 11/03/18 20:22 104 H 100 11/03/18 20:17 94 H 100 11/03/18 20:15 79 131/81 11/03/18 20:12 117 H 126/77 100 11/03/18 20:10 102 H 93 11/03/18 20:09 98 H 16 128/81 11/03/18 20:07 88 100 11/03/18 20:03 95 H 88 L 11/03/18 20:02 115 H 126/82 99 11/03/18 19:57 94 H 98 11/03/18 19:56 95 H 130/91 11/03/18 19:55 96 H 90 11/03/18 19:53 97 H 16 119/89 11/03/18 19:52 91 H 100 11/03/18 19:50 86 18 128/88 11/03/18 19:48 81 18 131/85 11/03/18 19:47 81 100 11/03/18 19:42 83 100 11/03/18 19:41 89 114/75 11/03/18 19:37 86 100 11/03/18 19:32 89 100 11/03/18 19:27 87 131/84 100 11/03/18 19:22 104 H 100 11/03/18 19:17 91 H 100 11/03/18 19:16 97 H 91 11/03/18 19:12 88 100 11/03/18 19:11 88 136/87 11/03/18 19:10 37.4 C 95 H 16 90 11/03/18 19:07 97 H 100 11/03/18 19:02 100 H 100 11/03/18 18:57 82 100 11/03/18 18:56 75 127/80 11/03/18 18:52 82 100 11/03/18 18:47 81 100 11/03/18 18:42 96 H 100 11/03/18 18:41 76 125/77 11/03/18 18:37 79 100 11/03/18 18:32 75 100 11/03/18 18:27 79 100 11/03/18 18:26 73 127/71 11/03/18 18:22 80 100 11/03/18 18:17 81 100 11/03/18 18:15 36.9 C 18 11/03/18 18:12 79 100 11/03/18 18:11 92 H 122/72 11/03/18 18:07 83 100 11/03/18 18:02 74 100 11/03/18 17:57 77 100 11/03/18 17:56 75 121/82 11/03/18 17:52 88 100 11/03/18 17:47 85 100 11/03/18 17:42 76 118/78 100 11/03/18 17:37 68 100 11/03/18 17:32 82 100 11/03/18 17:27 73 100 11/03/18 17:26 71 119/77 11/03/18 17:22 76 100 11/03/18 17:17 72 100 11/03/18 17:12 79 100 11/03/18 17:07 73 100 11/03/18 17:02 73 100 11/03/18 16:57 68 128/77 100 11/03/18 16:52 82 100 11/03/18 16:47 73 100 11/03/18 16:42 90 116/81 100 11/03/18 16:37 73 100 11/03/18 16:32 66 100 11/03/18 16:27 76 126/75 100 11/03/18 16:22 66 100 11/03/18 16:17 68 100 Laboratory Results Laboratory Results - last 24 hr 11/03/18 11/03/18 11/04/18 06:08 06:08 03:56 WBC 8.22 RBC 4.45 Hgb 15.2 11.8 L D Hct 43.0 34.5 L MCV 96.6 MCH 34.2 H MCHC 35.3 RDW Std Deviation 46.3 RDW Coeff of Kelly 13.2 Plt Count 143 MPV 11.6 H Blood Type Pending Antibody Screen Pending Crossmatch See Detail
[2018-11-04] MEDS: ACETAMINOPHEN 325 MG TAB PO PRN ×2 (04:48→09:53)
[2018-11-04 07:31] LABS: Hematocrit (blood only) 32.8 % (37-47); Hemoglobin 11.5 g/dL (12.0-16.0); Mean Corpuscular Hgb Conc 35.1 g/dL (32-36); Mean Corpuscular Volume 97.3 fL (80-100); Mean Platelet Volume 11.6 fL (7.4-10.4); Platelet Count 130 K/uL (130-400); RDW Coefficient of Variation 13.3 % (11.5-14.5); Red Blood Count 3.37 M/uL (4.2-5.4); White Blood Count 22.31 K/uL (4.8-10.8)
[2018-11-04] MEDS ORDERED: NON-FORMULARY MEDICATION (Prenatal Vit-Iron Fum-Folic Ac [Prenatal Vitamin] 1 TAB) PO SCH (09:00)
[2018-11-04] MEDS: PRENATAL VITAMIN 1 TAB PO SCH (09:52)
[2018-11-04] MEDS: FERROUS SULFATE 325 MG TAB PO SCH (09:53)
[2018-11-04] MEDS: DOCUSATE SODIUM 100 MG CAP PO SCH ×2 (09:53→19:39)
--- NOTE | 2018-11-04 14:23 | Anesthesia Procedure Note ---
Date of Service November 04, 2018 Anesthesia Post Epidural Note Vital Signs Vital Signs: Temp Pulse Resp BP Pulse Ox 36.8 C 91 H 20 113/78 98 11/04/18 09:56 11/04/18 09:55 11/04/18 09:56 11/04/18 09:55 11/04/18 09:10 Pain Intensity Abdomen: Pain Intensity: 4 Episiotomy/Laceration: Pain Intensity: 2 Generalized: Pain Intensity: 4 Notes Mental Status: alert / awake / arousable Nausea / Vomiting: adequately controlled Pain: adequately controlled Airway Patency, RR, SpO2: stable & adequate BP & HR: stable & adequate Hydration State: stable & adequate Neuraxial Anesthesia: was administered and sensory block is resolving Anesthetic Complications: no major complications apparent and Pt Satisfied with anesthetic care Epidural: Removed without complications and With tip intact
[2018-11-05 06:46] LABS: Hematocrit (blood only) 23.9 % (37-47); Hemoglobin 8.3 g/dL (12.0-16.0); Mean Corpuscular Hgb Conc 34.7 g/dL (32-36); Mean Corpuscular Volume 97.2 fL (80-100); Mean Platelet Volume 10.8 fL (7.4-10.4); Platelet Count 118 K/uL (130-400); RDW Coefficient of Variation 13.5 % (11.5-14.5); RDW Standard Deviation 47.1 fL (36.4-46.3); Red Blood Count 2.46 M/uL (4.2-5.4); White Blood Count 15.94 K/uL (4.8-10.8)
[2018-11-05] MEDS: PRENATAL VITAMIN 1 TAB PO SCH (08:20)
[2018-11-05] MEDS: FERROUS SULFATE 325 MG TAB PO SCH (08:20)
[2018-11-05] MEDS: IBUPROFEN 600 MG TAB PO PRN ×3 (08:20→20:26)
[2018-11-05] MEDS: DOCUSATE SODIUM 100 MG CAP PO SCH ×2 (08:20→20:26)
[2018-11-05] MEDS: MESALAMINE 1.2 GM PO SCH (08:45)
--- NOTE | 2018-11-05 09:35 | Obstetrical Progress Note ---
Date of Service November 05, 2018 Assessment & Plan (1) normal course: PPD #1 pt doing well antiicpate dich tomorrow Subjective Ambulation: ambulating normally Voiding: no voiding problems Passing Gas:: Yes Diet Tolerance:: regular diet Lochia:: Small Feeding Type:: breast feeding Review of Systems All systems reviewed & are unremarkable except as noted in HPI & below Physical Exam Constitutional WD/WN, vitals as above well developed and well nourished Eyes PERRL, conjunctivae normal, anicteric sclerae Neck trachea midline, no thyromegaly Respiratory normal respiratory effort, lungs clear to auscultation Auscultation: no crackles, no rales and no wheezes Cardiovascular RRR, no murmur, no edema Gastrointestinal (Abdomen) normal bowel sounds, soft, nontender, no hepatosplenomegaly Uterus is below umbilicus Musculoskeletal no cyanosis or clubbing, extremities motor strength 5/5 Skin no rashes, warm and dry Neurologic patellar DTR's 2+ bilat, sensation intact Psychiatric A+Ox3, euthymic affect Genitourinary normal external appearance Results & Data Vital Signs (Past 12 Hours) Vital Signs Temp Pulse Resp BP Pulse Ox 11/05/18 07:55 37.0 C 89 18 102/67 100 11/04/18 23:10 37.2 C 84 18 96/58 L
[2018-11-05] MEDS: ACETAMINOPHEN 325 MG TAB PO PRN (09:51)
[2018-11-05] MEDS ORDERED: BISACODYL 5 MG TABEC PO SCH (20:00)
[2018-11-06] MEDS: IBUPROFEN 600 MG TAB PO PRN ×2 (00:11→08:18)
[2018-11-06 07:16] LABS: Hematocrit (blood only) 27.3 % (37-47); Hemoglobin 9.3 g/dL (12.0-16.0)
[2018-11-06] MEDS: FERROUS SULFATE 325 MG TAB PO SCH (08:18)
[2018-11-06] MEDS: DOCUSATE SODIUM 100 MG CAP PO SCH (08:18)
[2018-11-06] MEDS: PRENATAL VITAMIN 1 TAB PO SCH (08:18)
[2018-11-06] MEDS: MESALAMINE 1.2 GM PO SCH (08:19)
--- NOTE | 2018-11-06 08:42 | Obstetrical Progress Note ---
Date of Service November 06, 2018 Subjective doing well no shortness of breath ambulating well tolerating diet Physical Exam Constitutional: WD/WN, vitals as above comfortable Abdomen soft non- tender fundus firm no edema for discharge today Results & Data Vital Signs (Past 12 Hours) Vital Signs Temp Pulse Resp BP Pulse Ox 11/06/18 00:00 37.0 C 82 18 108/66 98 Diagnostic Findings Laboratory Results - last 48 hr 11/03/18 11/05/18 11/06/18 06:08 06:08 06:47 WBC 15.94 H RBC 2.46 L Hgb 8.3 L D 9.3 L Hct 23.9 L 27.3 L MCV 97.2 MCH 33.7 MCHC 34.7 RDW Std Deviation 47.1 H RDW Coeff of Kelly 13.5 Plt Count 118 L MPV 10.8 H Crossmatch See Detail
== END 2018-11-06 12:35 | disposition home or self-care (01) | DRG 806 ==
LOC: OPB 05:08 → 4S1 05:11 → 4S2 11-04 09:56

== ENCOUNTER 2022-12-04 14:58 | Inpatient (IN) ==
[2022-12-04] MEDS ORDERED: LACTATED RINGER'S 1,000 ML IV PRN (15:32)
[2022-12-04] MEDS ORDERED: LIDOCAINE 1% LOCAL 20 ML VIAL INFIL PRN (15:32)
--- NOTE | 2022-12-04 15:56 | History & Physical Report ---
Date of Service December 04, 2022 Assessment & Plan (1) Normal labor: Plan Admit to L and D regular diet x 1 then NPO/IV Fluids labs Pitocin to consider to agumnt labor pain meds including epidural as the pt desires History of Present Illness Chief Complaint: Pt 31 yr old came in labor Primary Care Provider: Surya Ibarra DO Pt 31 yr old came in c/o regular uterine contractions q 3 to 5 min. Denies leaking of fluid per vagina, vaginal bleeding etc. reports good movement. Allergies Allergy/AdvReac Type Severity Reaction Status Date / Time No Known Allergies Allergy Verified 11/03/18 05:27 Home Medications Medication Instructions Recorded Confirmed Type mesalamine 1.2 gram tablet,delayed 3.6 g PO DAILY 03/06/18 11/03/18 History release vitamins-iron fumarate 27 1 tab PO DAILY 11/03/18 11/03/18 History mg iron-folic acid 0.8 mg tablet ( Vitamin) ferrous sulfate 325 mg (65 mg 325 mg PO QAM #30 tabs 11/06/18 Rx iron) tablet,delayed release ibuprofen 600 mg tablet 600 mg PO Q4H #30 tabs 11/06/18 Rx Past Med/Surg History Medical History (Updated 12/04/22 @ 15:54 by Teresa Carrasco MD) Ulcerative colitis Surgical History Hx of appendectomy Family History Other Cancer Diabetes Heart disease Hypertension Social History Smoking Status: Never smoker Second Hand Exposure: No; Do You Dip or Chew Tobacco: No; Tobacco Cessation Education Requested by Patient: No Hx Alcohol Use: No Hx Substance Use: No Preferred Language: Jordanian Communication Ability: Effective Extrusion Engineer Required: No Beliefs That Will Affect Care: None marital status: Current Living Situation: Family Current Living Situation Comment: Lives with , son, and 1 dog current occupational status: employed Other Information That Helps Us Care for You: No Feels Safe at Home: Yes Safety Concerns: Feels Safe At This Time Assistive Devices: None Review of Systems Review of Systems: All systems reviewed & are unremarkable except as noted in HPI & below Constitutional: as per Subjective / HPI Respiratory: as per Subjective / HPI Cardiovascular: as per Subjective / HPI Genitourinary: as per Subjective / HPI Physical Exam Constitutional: WD/WN, vitals as above Respiratory: normal respiratory effort, lungs clear to auscultation Cardiovascular: RRR, no murmur, no edema Gastrointestinal (Abdomen): normal bowel sounds, soft, nontender, no hepatosplenomegaly Skin: no rashes, warm and dry Psychiatric: A+Ox3, euthymic affect Genitourinary: no vaginal lesions, no adnexal mass OB Exam Abdomen: + heart tones (140s, Good variability, positive accelerations ) and + vertex Manual OB Exam: + cervical dilation 4 cm, + cervical effacement 70% and + station -2 OB Exam Monitor Tracing: + external FHT monitor used and + category I Results & Data Results & Data Vital Signs (Past 12 Hours) Vital Signs Temp Pulse Resp BP 12/04/22 15:03 96 H 133/83 12/04/22 15:20 36.7 C 96 H 16 133/83 Laboratory Results GBS Negative
[2022-12-04 16:01] LABS: Hematocrit (blood only) 43.2 % (37.0-47.0); Hemoglobin 15.2 g/dl (12.0-16.0); Mean Corpuscular Hemoglobin 34.2 pg (25.0-34.0); Mean Corpuscular Hgb Conc 35.2 g/dL (32.0-36.0); Mean Corpuscular Volume 97.1 fL (80.0-100.0); Mean Platelet Volume 11.2 fL (9.4-12.4); Platelet Count 152 K/uL (130-400); RDW Coefficient of Variation 13.1 % (11.5-14.5); RDW Standard Deviation 46.9 fL (36.4-46.3); Red Blood Count 4.45 M/uL (4.20-5.40); White Blood Count 9.24 K/ul (4.8-10.8)
[2022-12-04] MEDS ORDERED: fentaNYL citrate PF 100 MCG/2 ML VIAL ONE (16:06)
[2022-12-04] MEDS ORDERED: SODIUM CHLORIDE 0.9% PF INJ 10 ML VIAL ONE (16:06)
[2022-12-04] MEDS ORDERED: BUPIVACAINE 0.25% PF 30 ML VIAL ONE (16:06)
[2022-12-04] MEDS ORDERED: LIDOCAINE 2%/EPINEPHRINE 1:200,000 20 ML PF ONE (16:06)
[2022-12-04] MEDS ORDERED: ePHEDrine sulfate 50 MG/ML AMP ONE (16:06)
[2022-12-04] MEDS ORDERED: fentaNYL 2MCG/ML ROPIVACAINE 1.25MG/ML 100 ML BAG EPI ONE (16:07)
[2022-12-04] MEDS ORDERED: fentaNYL citrate PF 100 MCG/2 ML VIAL EPI PRN (16:23)
[2022-12-04] MEDS ORDERED: BUPIVACAINE 0.25% PF 30 ML VIAL EPI PRN (16:23)
[2022-12-04] MEDS ORDERED: LIDOCAINE 2% MPF LOCAL 5 ML VIAL EPI PRN (16:23)
[2022-12-04] MEDS ORDERED: NALBUPHINE HCL INJ 10 MG/ML AMP IV PRN (16:23)
[2022-12-04] MEDS ORDERED: diphenhydrAMINE 50 MG/ML VIAL IV PRN (16:23)
[2022-12-04] MEDS ORDERED: fentaNYL 2MCG/ML ROPIVACAINE 1.25MG/ML 100 ML BAG EPI PRN (16:23)
[2022-12-04] MEDS ORDERED: ROPIVACAINE 0.5% PF 5 MG/ML 20 ML VIAL EPI PRN (16:23)
[2022-12-04] MEDS ORDERED: NALOXONE HCL 1 MG in SODIUM CHLORIDE 0.9% 1000ML 1,000 ML IV PRN (16:23)
[2022-12-04] MEDS ORDERED: METOCLOPRAMIDE HCL 20 MG in SODIUM CHLORIDE 0.9% 50 ML IV PRN (16:23)
[2022-12-04] MEDS ORDERED: BUPIVACAINE 0.25% PF 30 ML VIAL EPI STA (16:23)
[2022-12-04] MEDS ORDERED: ONDANSETRON INJ 2 MG/ML 2 ML VIAL IV PRN (16:23)
[2022-12-04] MEDS ORDERED: NALOXONE HCL 0.4 MG/1 ML VIAL/CARP IV PRN (16:23)
[2022-12-04] MEDS ORDERED: LIDOCAINE 2%/EPINEPHRINE 1:200,000 20 ML PF EPI STA (16:23)
[2022-12-04] MEDS ORDERED: SODIUM CHLORIDE 0.9% PF INJ 10 ML VIAL EPI PRN (16:23)
[2022-12-04] MEDS ORDERED: ePHEDrine sulfate 50 MG/ML AMP IV PRN (16:23)
[2022-12-04] MEDS ORDERED: fentaNYL citrate PF 100 MCG/2 ML VIAL EPI STA (16:23)
[2022-12-04] MEDS ORDERED: SODIUM CHLORIDE 0.9% PF INJ 10 ML VIAL EPI STA (16:23)
--- NOTE | 2022-12-04 16:29 | Anesthesiology Consultation ---
Date of Service December 04, 2022 Assessment & Plan Chart Review Chart Review: Acceptable Risk for Labor Epidural Consults Requested none ASA ASA2 Proposed Anesthesia Anesthesia Type: Labor Epidural Risk / Benefits Reviewed With: PT / POA / Parent / Guardian, Accepts Plan and Informed Consent Obtained History Height/Weight Height: 5 ft 4 in Weight: 64.864 kg Allergies Allergy/AdvReac Type Severity Reaction Status Date / Time No Known Allergies Allergy Verified 11/03/18 05:27 Medications Home Medications Medication Instructions Recorded Confirmed Last Taken mesalamine 1.2 gram tablet,delayed 3.6 g PO DAILY 03/06/18 12/04/22 12/04/22 08:00 release vitamins-iron fumarate 27 1 tab PO DAILY 11/03/18 12/04/22 12/04/22 08:00 mg iron-folic acid 0.8 mg tablet ( Vitamin) ferrous sulfate 325 mg (65 mg 325 mg PO QAM #30 tabs 11/06/18 Unknown iron) tablet,delayed release ibuprofen 600 mg tablet 600 mg PO Q4H #30 tabs 11/06/18 Unknown NPO Date Last Intake of Fluids: 12/04/22 Time Last Intake of Fluids: 16:00 Date Last Intake of Solids: 12/04/22 Time Last Intake of Solids: 12:30 Past Medical History Medical History Ulcerative colitis Exercise / Class Metabolic Activity II 4-5 Yardwork/Stairs/Walk up hill Past Family History Family History Other Cancer Diabetes Heart disease Hypertension Past Surgical History Surgical History Hx of appendectomy Past Anesthesia History No Hx of Anesthesia Complications and No Family Hx of Anesthesia Complications History of PONV No Hx of PONV and No Hx of Motion Sickness Social History Smoking Status: Never smoker Do You Dip or Chew Tobacco: No Hx Alcohol Use: No Hx Substance Use: No substance use type: does not use Physical Exam Vital Signs Last Vital Signs Temp 36.7 C 12/04/22 15:20 Pulse 78 12/04/22 16:23 Resp 16 12/04/22 15:20 BP 133/83 12/04/22 15:20 Pulse Ox 97 12/04/22 16:23 ENMT Mouth: no TMJ abnormality Thyromental Distance: > or= 3.5 Finger Breadths Mallampati Class: II Neck normal visual inspection and trachea midline; neck extension not limited Respiratory normal respiratory effort Auscultation: lungs clear to auscultation bilaterally Cardiovascular Rate/Rhythm: regular rate and regular rhythm Heart Sounds: no murmur Musculoskeletal Spine: normal cervical ROM Extremities: full ROM of extremities Neurologic moves all extremities Psychiatric Orientation: alert and oriented x 3 Testing Laboratory Results 12/04/22 15:42
[2022-12-04] MEDS: OXYTOCIN 30 UNITS/500 ML BAG IV PRN ×2 (18:46→19:24)
--- NOTE | 2022-12-04 19:06 | Operative Report ---
Post Operative Report Pre & Post Diagnosis I identified the patient and participated in the time-out.: Yes Procedure Surgeon Teresa Carrasco MD Environmental Director tarah Estimated Blood Loss 300 Findings Consistent with Post-Op Diagnosis ( pt stable ) Specimens none Description of Procedure I attest to the content of the Intraoperative Record and any orders documented therein. Any exceptions are noted below.
--- NOTE | 2022-12-04 19:12 | Progress Note ---
Date of Service December 04, 2022 Assessment & Plan Admission and Anticipated Discharge Date Admission Date: December 04, 2022 Supervising Physician Co-Signing Physician Notes Dr. Francisca Carrasco MD Subjective Pt fully dilated and pushing, placed in dorsal lithotomy position, prepped and draped in usual fashion, pt pushed for few minutes, delivered alive viable male in PATY position, placed the on the mothers abdomen, bulb suctioned nose and mouth, cord clamped and cut by FOB. placenta delivered spontaneously and complete. Small second degree vaginal laceration noted. repaired with 2.0 Vicryl. Pt tolerated the procedure well. EBL: 300 CC APGARS: 8,9 at 1 and 5 min Delivery time; 18:32 Placenta delivere : 18: 36 Results & Data Vital Signs (Past 12 Hours) Vital Signs Temp Pulse Resp BP Pulse Ox 12/04/22 19:03 78 119/72 12/04/22 18:48 99 H 131/68 98 12/04/22 18:43 93 H 97 12/04/22 18:38 99 H 97 12/04/22 18:33 105 H 96 12/04/22 18:34 104 H 163/70 H 12/04/22 18:28 101 H 100 12/04/22 18:23 98 H 100 12/04/22 18:21 96 H 92 12/04/22 18:18 95 H 100 12/04/22 18:13 86 100 12/04/22 18:08 86 100 12/04/22 18:03 100 12/04/22 18:03 84 12/04/22 18:03 83 121/75 12/04/22 18:00 18 12/04/22 18:00 18 12/04/22 17:58 95 H 100 12/04/22 17:54 95 H 89 L 12/04/22 17:53 88 100 12/04/22 17:49 78 118/77 12/04/22 17:48 76 100 12/04/22 17:43 77 100 12/04/22 17:38 75 100 12/04/22 17:33 75 100 12/04/22 17:34 75 127/78 12/04/22 17:28 73 100 12/04/22 17:23 105 H 95 12/04/22 17:18 99 12/04/22 17:18 82 12/04/22 17:18 82 125/73 12/04/22 17:10 20 12/04/22 17:10 20 12/04/22 17:15 18 12/04/22 17:15 18 12/04/22 17:06 18 12/04/22 17:06 18 12/04/22 17:13 96 H 100 12/04/22 16:45 20 12/04/22 16:45 20 12/04/22 16:55 18 12/04/22 16:55 18 12/04/22 17:12 93 H 112/65 12/04/22 17:00 20 12/04/22 17:00 20 12/04/22 17:08 36.9 C 91 H 100 12/04/22 17:07 90 115/68 12/04/22 17:03 93 H 100 12/04/22 17:02 92 H 118/73 12/04/22 16:58 85 98 12/04/22 16:56 78 117/69 12/04/22 16:53 87 99 12/04/22 16:54 77 115/67 12/04/22 16:52 88 128/80 12/04/22 16:50 84 18 120/78 12/04/22 16:48 90 125/88 100 12/04/22 16:46 85 117/75 12/04/22 16:43 87 99 12/04/22 16:44 80 124/77 12/04/22 16:42 79 132/69 12/04/22 16:40 82 18 137/84 12/04/22 16:38 83 100 12/04/22 16:36 95 H 94 12/04/22 16:33 106 H 100 12/04/22 16:31 93 H 142/85 H 12/04/22 16:28 92 H 98 12/04/22 16:23 78 97 12/04/22 16:18 77 100 12/04/22 16:13 79 99 12/04/22 15:05 36.7 C 12/04/22 15:03 96 H 133/83 12/04/22 15:20 36.7 C 96 H 16 133/83
[2022-12-04] MEDS ORDERED: ACETAMINOPHEN 325 MG TAB PO PRN (19:19)
[2022-12-04] MEDS ORDERED: DIPHTHERIA/TETANUS/PERTUSSIS Vaccine (Tdap, Age 7+yrs) 0.5mL SYR/VL IM ONE (19:19)
[2022-12-04] MEDS ORDERED: HYDROCORTISONE ACETATE 25 MG SUPP PR PRN (19:19)
[2022-12-04] MEDS ORDERED: bisacodyL 10 MG SUPP PR PRN (19:19)
[2022-12-04] MEDS ORDERED: BENZOCAINE 20% SPRY 85 APPLN/85 GM CAN EXT PRN (19:19)
[2022-12-04] MEDS ORDERED: OXYTOCIN 30 UNITS/500 ML BAG IV PRN (19:19)
--- NOTE | 2022-12-04 20:51 | Anesthesia Procedure Note ---
Date of Service December 04, 2022 Anesthesia Post Epidural Note Vital Signs Vital Signs: Temp Pulse Resp BP Pulse Ox 37.0 C 90 18 113/73 98 12/04/22 19:02 12/04/22 20:48 12/04/22 20:18 12/04/22 20:48 12/04/22 18:48 Notes Mental Status: alert / awake / arousable and participated in evaluation Nausea / Vomiting: adequately controlled Pain: adequately controlled Airway Patency, RR, SpO2: stable & adequate BP & HR: stable & adequate Hydration State: stable & adequate Neuraxial Anesthesia: was administered and sensory block is resolving Anesthetic Complications: no major complications apparent and Pt Satisfied with anesthetic care Epidural: Removed without complications and With tip intact
[2022-12-04] MEDS: DOCUSATE SODIUM 100 MG CAP PO SCH (21:18)
[2022-12-04] MEDS: IBUPROFEN 600 MG TAB PO PRN (23:57)
[2022-12-05] MEDS: IBUPROFEN 600 MG TAB PO PRN ×3 (03:31→13:24)
[2022-12-05 06:27] LABS: Hematocrit (blood only) 35.7 % (37.0-47.0); Hemoglobin 12.3 g/dl (12.0-16.0); Mean Corpuscular Hemoglobin 34.1 pg (25.0-34.0); Mean Corpuscular Hgb Conc 34.5 g/dL (32.0-36.0); Mean Corpuscular Volume 98.9 fL (80.0-100.0); Mean Platelet Volume 11.3 fL (9.4-12.4); Platelet Count 125 K/uL (130-400); RDW Coefficient of Variation 13.2 % (11.5-14.5); RDW Standard Deviation 47.8 fL (36.4-46.3); Red Blood Count 3.61 M/uL (4.20-5.40); White Blood Count 12.05 K/ul (4.8-10.8)
[2022-12-05] MEDS: DOCUSATE SODIUM 100 MG CAP PO SCH (07:46)
[2022-12-05] MEDS ORDERED: PRENATAL VITAMIN 1 TAB PO SCH (08:00)
--- NOTE | 2022-12-05 11:24 | Obstetrical Progress Note ---
Date of Service December 05, 2022 Subjective Ambulation: ambulating normally Voiding: no voiding problems Passing Gas:: Yes Diet Tolerance:: regular diet Lochia:: Small Feeding Type:: breast feeding Current Pain Level(1-10): 0 doing well Physical Exam Constitutional WD/WN, vitals as above Gastrointestinal (Abdomen) Inspection/Auscultation: abdomen normal to inspection (fundus firm below U) Musculoskeletal Extremities: extremities normal to inspection Skin no rashes, warm and dry Neurologic patellar DTR's 2+ bilat, sensation intact Psychiatric A+Ox3, euthymic affect Results & Data Vital Signs (Past 12 Hours) Vital Signs Temp Pulse Resp BP Pulse Ox O2 Del Method 12/05/22 07:30 36.7 C 79 18 104/69 Room Air 12/05/22 03:33 36.4 C L 77 18 105/68 97 Room Air 12/04/22 23:39 36.9 C 89 18 104/66 96 Room Air Laboratory Results 12/04/22 12/04/22 12/05/22 15:42 15:42 05:49 WBC 9.24 12.05 H RBC 4.45 3.61 L Hgb 15.2 12.3 D Hct 43.2 35.7 L MCV 97.1 98.9 MCH 34.2 H 34.1 H MCHC 35.2 34.5 RDW Std Deviation 46.9 H 47.8 H RDW Coeff of Kelly 13.1 13.2 Plt Count 152 125 L MPV 11.2 11.3 Blood Type O Positive Antibody Screen NEGATIVE
[2022-12-05] MEDS ORDERED: bisacodyL 5 MG TABEC PO SCH (20:00)
== END 2022-12-05 19:54 | disposition home or self-care (01) | DRG 807 ==
LOC: OPB 14:58 → 4S1 15:00 → 4E2 21:44